=== PATIENT | male | born 1995 ===

== ENCOUNTER 2023-07-09 17:42 | Emergency (ER) | payer OTHER, SELFPAY | END 2023-07-09 20:20 | disposition left against medical advice (07) | LOC: ANHED 19:56 | DX: Z53.21 Procedure and treatment not carried out due to patient leaving prior to being seen by health care provider (principal) | CPT/HCPCS: 99199 ==

== ENCOUNTER 2024-07-30 00:13 | Emergency (ER) | payer OTHER, SELFPAY ==
--- NOTE | 2024-07-30 01:25 | PC.NURSE ---
ON 07/30/2024 AT 0125 PT WAS CALLED FOR TRIAGE. NO ANSWER FROM ED WR WHEN THIS PT'S NAME WAS CALLED 3 TIMES.
--- NOTE | 2024-07-30 01:25 | PC.NURSE ---
AT 0125 ON 07/30/2024 NO ANSWER FOR TRIAGE WHEN PT'S NAME WAS CALLED MULTIPLE TIMES IN ED WR.
--- OUTSIDE RECORDS SUMMARY | 2024-08-06 00:31 | XMS_ITS | Clinical Summary ---
Author Organization [facility] Address [facility]. [place], [place] [address] [place] [address] Care Team Providers Care Garage Door Technician Name Role Phone EfrainYasmine Primary Care Provider [phone] Allergies No known active allergies Medications HYDROcodone-venkat taminophen (NORCO) 5-325 MG tabletIndicatio ns:Acute Pain < 7 Day Supply Take 1-2 tablets by mouth every 6 (six) hours as needed for Pain. Indications: Acute Pain < 7 Day Supply 30 tablet 07/10/2023 Active Active Problems Problem Noted Date Diagnosed Date Closed fracture of multiple ribs of right side, initial encounter 07/10/2023 Insomnia, unspecified type 09/20/2020 Weight loss 09/20/2020 Mood swings 09/20/2020 Anxiety 02/23/2020 Hand injury 11/24/2016 Heart murmur 01/05/2016 Idiopathic urticaria 01/02/2016 Resolved Problems Problem Noted Date Diagnosed Date Resolved Date Need for prophylactic vaccin ation with combined bdohimhuhs-wwhacmu-yhkbpzpxz (DTP) vaccine 09/20/2020 09/24/2020 Encounter for preventive health examination 01/02/2016 04/13/2020 Immunizations Name Administration Dates Next Due Dtap (Generic) 11/20/2000, 7,03/25/1996, 996,1995 Dtp/Hib 04/10/1997, 6,1995, 996,1995,1995 Hepatitis B (Generic: Adult) 06/20/1996,09/28/18 96,1995 Hib Vaccine, Prp-Omp 04/10/1997,03/25/19 96,1995, 996 MMR 08/24/1996 MMR (Generic) 11/20/2000 Opv 11/20/2000, 6,1995, 996 Tdap (Generic) 03/01/2010 Tdap (Historical Only-select from magnify glass) 09/20/2020 Varicella Vaccine 03/01/2010,08/24/1996 Family History Medical History Relation Comments Colon Cancer Other Diabetes Other Hypertension Other Relation Status Comments Other Social History Tobacco Use Types Packs/Day Years Used Date Smoking Tobacco: Every Day Comments:few a day Alcohol Use Standard Drinks/Week Comments Never 0 (1 standard drink = 0.6 oz pur e alcohol) AUDIT-C Answer Date Recorded Frequency of Alcohol Consumption Never 02/23/2020 Average Number of Drinks Not on file 020 Frequency of Binge Drinking Not on file 02/01 PHQ-2 Answer Date Recorded PHQ-2 Score - If the patient scores above 3, please move on to questions 3-9 0 02/23/2020 Sex and Gender Information Value Date Recorded Sex Assigned at Not on file Legal Sex Male 6:32 PM CDT Gender Identity Not on file Sexual Orientation Not on file Occupation Industry Job Start Date Job End Date works [employer] Not on file Not on file Not o n file Last Filed Vital Signs Vital Sign Reading Time Taken Comments Blood Pressure 154/88 07/10/2023 2:36 PM QUALITY ASSURANCE CALIBRATOR Pulse - - Temperature - - Respiratory Rate - - Oxygen Saturation 97% 07/10/2023 2:36 PM QUALITY ASSURANCE CALIBRATOR Inhaled Oxygen Concentration - - Weight 81.2 kg (179 lb) 07/10/2023 2:36 PM QUALITY ASSURANCE CALIBRATOR Height 180.3 cm (5' 11 ) 03/29/2020 2:34 PM CDT Body Mass Index 24.97 03/29/2020 2:34 PM CDT Plan of Treatment Health Maintenance Due Date Last Done Comments Pneumococcal Vaccine: Pediatrics (0 to 5 Years) and At-Risk Patients (6 to 64 Years) (1 of 2 - PCV) 2001 Hepatitis C 2013 Annual Physical 02/22/2021 02/23/2020 COVID-19 Vaccine (2023-25 season) 2024 Influenza Adult (#1) 2024 DTaP, Tdap and Td Vaccines (8 - Td or Tdap) 09/20/2030 09/20/2020, 03/01/2010, 11/20/2000, Additional history exists Hepatitis B Vaccines Completed 06/20/1996, 1995, 1995 HPV Vaccines Aged Out No longer eligi ble based on patient's age to complete this topic Meningococcal Vaccine Aged Out No nikky jermaine eligible based on patient's age to complete this topic RSV Immunizations Under 20 Months Aged Out No longer eligible based on patient's age to complete this topic Insurance [facility] Care Teams Garage Door Technician Relationship Specialty Start Date End Date Yasmine Zuniga DO [address] [place] [address] PCP - General FAMILY PRACTICE 10/04/19
--- OUTSIDE RECORDS SUMMARY | 2024-08-06 00:31 | XMS_ITS | Encounter Summary ---
Author Organization [facility] Address [address] [place] [address]. [place], [place] [address] [place] [address] Care Team Providers Care Vp Director Of Finance Name Role Phone Unavailable Primary Care Provider Unavailabl e Encounter Details Date Type Department Care Team (Latest Contact Info) Description 09/28/2018 [facility] Yasmine Zuniga, DO [address] [place] [address] Social History Tobacco Use Types Packs/Day Years Used Date Smoking Tobacco: Never Assessed Sex and Gender Information Value Date Recorded Sex Assigned at Not on file Legal Sex Male 6:32 PM CDT Gender Identity Not on file Sexual Orientation Not on file documented as of this encounter Plan of Treatment Not on file documented as of this encounter Visit Diagnoses Not on filedocumented in this encounter
--- OUTSIDE RECORDS SUMMARY | 2024-08-06 00:31 | XMS_ITS | Encounter Summary ---
Author Organization [facility] Address [address] [place] [address]. [place], [place] [address] [place] [address] Care Team Providers Care Stone Operator Name Role Phone Yasmine Zuniga DO Primary Care Provider Encounter Details Date Type Department Care Team (Latest Contact Info) Description 02/23/2020 Travel Social History Tobacco Use Types Packs/Day Years [...] Job Start Date Job End Date works [employer] Not on file Not on file Not o n file COVID-19 Exposure Response Date Recorded In the last month, have you been in contact with someone who was confirmed or suspected to have Coronavirus / COVID-19? No / Unsure 02/23/2020 4:08 PM CDT documented as of this encounter Plan of Treatment Not on file documented as of this encounter Visit Diagnoses Not on filedocumented in this encounter Care Teams Stone Operator Relationship Specialty Start Date End Date Yasmine Zuniga DO [address] [place] [address] PCP - General FAMILY PRACTICE 10/04/19 documented as of this encounter
--- OUTSIDE RECORDS SUMMARY | 2024-08-06 00:31 | XMS_ITS | Encounter Summary ---
Author Organization [facility] Address [facility] [address] [place] [address] Care Team Providers Care Lithograph Press Operator Name Role Phone Unavailable Primary Care Provider Unavailabl e Encounter Details Date Type Department Care Team (Latest Contact Info) Description 10/20/2018 Abstract [facility] Efrain Yasmine S, DO [address] [place], [place] [id number] Social History Tobacco Use Types Packs/Day Years Used Date Smoking Tobacco: Never Assessed Sex and Gender Information Value Date Recorded Sex Assigned at Not on file Legal Sex Male 6:32 PM CDT Gender Identity Not on file Sexual Orientation Not on file documented as of this encounter Miscellaneous Notes * Letter - Angelo Apodaca Md, MD - 10/20/2018 4:21 PM CDT Message Appointment Status: The patient no showed for his/her appointment... Patient Communication: The patient was called regarding the missed appointment.. today. Result: The patient will call back to reschedule the appointment. Signatures Electronically signed by : Jessica Bell, ; Oct 20 2018 4:21PM LINSEED OIL ORDER FILLER (Author) documented in this encounter Plan of Treatment Not on file documented as of this encounter Visit Diagnoses Not on filedocumented in this encounter
--- OUTSIDE RECORDS SUMMARY | 2024-08-06 00:31 | XMS_ITS | Encounter Summary ---
Author Organization [facility] Address [address] [place] [address]. [place], [place] [address] [place] [address] Care Team Providers Care Senior Web Developer Name Role Phone EfrainYasmine Primary Care Provider [phone] Encounter Details Date Type Department Care Team ([facility] st Contact Info) Description 09/20/2020 9:35 AM THINNER SPRAYER Laboratory Only [facility] [address] [facility] [address] [place] [address] Social History Tobacco Use Types Packs/Day Years [...] Job Start Date Job End Date works [employer] Not on file Not on file Not o n file COVID-19 Exposure Response Date Recorded In the last month, have you been in contact with someone who was confirmed or suspected to have Coronavirus / COVID-19? No / Unsure 09/20/2020 9:03 AM THINNER SPRAYER documented as of this encounter Plan of Treatment Not on file documented as of this encounter Procedures Procedure Name Priority Date/Time Associated Diagnosis Comments COMPREHENSIVE METABOLIC PANEL Routine 09/20/2020 9:44 AM THINNER SPRAYER Weight loss Anxiety THYROXINE, FREE (FT4) Routine 09/20/2020 9:44 AM THINNER SPRAYER Weight loss Anxiety THYROID STIM HORMONE TSH Routine 09/20/2020 9:44 AM THINNER SPRAYER Weight loss Anxiety COLLECTION VENOUS BLOOD VENIPUNCTURE Routine 09/20/2020 9:41 AM THINNER SPRAYER Weight loss Anxiety documented in this encounter Results * THYROID STIM HORMONE, TSH (09/20/2020 9:44 AM THINNER SPRAYER) TSH 0.58 0.40 - 4.50 mIU/L [facility] 09/20/2020 9:44 AM THINNER SPRAYER 09/21/2020 7:19 AM THINNER SPRAYER Narrative [facility] - 09/21/2020 2:12 PM THINNER SPRAYER FASTING: YES Yasmine Zuniga DO LABORATORY Final Result Performing Organization Address [facility] Co de Phone Number [facility] [address] [place] [address] * THYROXINE, FREE (FT4) (09/20/2020 9:44 AM THINNER SPRAYER) FREE T4 1.2 0.8 - 1.8 ng/dL [facility] 09/20/2020 9:44 AM THINNER SPRAYER 09/21/2020 7:19 AM THINNER SPRAYER Narrative [facility] - 09/21/2020 2:12 PM THINNER SPRAYER FASTING: YES us Yasmine Zuniga DO LABORATORY Final Result Performing Organization Address [facility] Co de Phone Number [facility] [address] [place] [address] * (ABNORMAL) COMPREHENSIVE METABOLIC PANEL (09/20/2020 9:44 AM THINNER SPRAYER) GLUCOSE 76 65 - 99 mg/dL [facility] Comment: ? Fasting reference interval BUN 12 7 - 25 mg/dL [facility] CREATININE S/P/B 0.97 0.60 - 1.35 mg/dL [facility] EGFR NON-AFR. AMER. 108 > OR = 60 mL/min/1. 73m2 [facility] EGFR AFR. AMER. 125 > OR = 60 mL/min/1. 73m2 [facility] BUN CREATININE RATIO NOT APPLICABLE 6 - 22 (calc) [facility] SODIUM S/P/B 139 135 - 146 mmol/L [facility] POTASSIUM S/P/B 3.7 3.5 - 5.3 mmol/L [facility] CHLORIDE S/P/B 99 98 - 110 mmol/L [facility] CO2 25 20 - 32 mmol/L [facility] CALCIUM S/P/B 9.8 8.6 - 10.3 mg/dL [facility] TOTAL PROTEIN S/P/B 7.2 6.1 - 8.1 g/dL [facility] ALBUMIN S/P/B 5.0 3.6 - 5.1 g/dL [facility] GLOBULIN 2.2 1.9 - 3.7 g/dL (calc) [facility] ALBUMIN/GLOBULI N RATIO 2.3 1.0 - 2.5 (calc) [facility] BILIRUBIN TOTAL S/P/B 1.8(H) 0.2 - 1.2 mg/dL [facility] ALKALINE PHOSPHATASE S/P/B 103 36 - 130 U/L [facility] AST 41(H) 10 - 40 U/L [facility] ALT 22 9 - 46 U/L [facility] 09/20/2020 9:44 AM THINNER SPRAYER 09/21/2020 7:19 AM THINNER SPRAYER Narrative [facility] - 09/21/2020 2:12 PM THINNER SPRAYER FASTING: YES us Yasmine Zuniga DO LABORATORY Final Result [facility] [address] [address] [address] documented in this encounter Visit Diagnoses Diagnosis Weight loss Loss of weight Anxiety Anxiety state, unspecified documented in this encounter Care Teams Senior Web Developer Relationship Specialty Start Date End Date Yasmine Zuniga DO [address] [place] [address] PCP - General FAMILY PRACTICE 10/04/19 documented as of this encounter
--- OUTSIDE RECORDS SUMMARY | 2024-08-06 00:31 | XMS_ITS | Encounter Summary ---
Author Organization [facility] Address [address] [place] [address]. [id number] [place] [address] Care Team Providers Care Collar Turner Name Role Phone Yasmine Zuniga DO Primary Care Provider Encounter Details Date Type Department Care Team (Latest Contact Info) Description 03/29/2020 Travel Social History Tobacco Use Types Packs/Day [...] Job Start Date Job End Date works [employer] Not on file Not on file Not o n file COVID-19 Exposure Response Date Recorded In the last month, have you been in contact with someone who was confirmed or suspected to have Coronavirus / COVID-19? No / Unsure 03/29/2020 2:29 PM CDT documented as of this encounter Plan of Treatment Not on file documented as of this encounter Visit Diagnoses Not on filedocumented in this encounter Care Teams Collar Turner Relationship Specialty Start Date End Date Yasmine Zuniga DO [address] [place] [address] PCP - General FAMILY PRACTICE 10/04/19 documented as of this encounter
--- OUTSIDE RECORDS SUMMARY | 2024-08-06 00:31 | XMS_ITS | Encounter Summary ---
Author Organization [facility] Address [address] [place] [address]. [place], [place] [address] [place] [address] Care Team Providers Care Cook'S Assistant Name Role Phone Unavailable Primary Care Provider Unavailabl e Encounter Details Date Type Department Care Team (Late st Contact Info) Description 04/24/2008 Abstract [facility] [employer] [facility] [address] [place] [address] , Angelo Apodaca MD Social History Tobacco Use Types Packs/Day Years [...]
--- OUTSIDE RECORDS SUMMARY | 2024-08-06 00:31 | XMS_ITS | Encounter Summary ---
Author Organization [facility] Address [address] [place] [address]. [place] [address] [place] [address] Care Team Providers Care Certified Medical Biller Name Role Phone Ant Zuniga DO Primary Care Provider Reason for Visit * Reason Comments Physical EPPE Encounter Details Date Type Department Care Team (Late st Contact Info) Description 02/23/2020 4:00 PM CDT Office Visit [facility] [address] [facility] [address] [place] [id number] Ant Zuniga DO [address] [place] [address] Physical (EPPE) Social History Tobacco Use Types Packs/Day Years [...] Job Start Date Job End Date works [employer] Not on file Not on file Not o n file COVID-19 Exposure Response Date Recorded In the last month, have you been in contact with someone who was confirmed or suspected to have Coronavirus / COVID-19? No / Unsure 02/23/2020 4:08 PM CDT documented as of this encounter Last Filed Vital Signs Vital Sign Reading Time Taken Comments Blood Pressure 144/68 02/23/2020 4:12 PM CDT Pulse - - Temperature - - Respiratory Rate - - Oxygen Saturation - - Inhaled Oxygen Concentration - - Weight 83 kg (183 lb) 02/23/2020 4:12 PM CDT Height 180.3 cm (5' 11 ) 02/23/2020 4:12 PM CDT Body Mass Index 25.52 02/23/2020 4:12 PM CDT documented in this encounter Progress Notes * Ant Ashia Efrain, DO - 02/23/2020 4:00 PM CDT Reason for Visit: Physical (EPPE) History of Present Illness: Here for EstPPE Saw Libia in October for anxiety, was started on zoloft, helps some but says when he gets very stressed, he gets worse Sleeps ok Girlfriend having their 2nd son tomorrow Not working due to covid So many stressors He does smoke marijuana several times a week, says it calms him down ROS: Review of Systems Constitutional: Negative. Respiratory: Negative. Cardiovascular: Negative. Gastrointestinal: Negative. Genitourinary: Negative. Musculoskeletal: Negative. Psychiatric/Behavioral: Negative for depression. The patient is nervous/anxious. Medications: Current Outpatient Medications: ??? busPIRone 15 MG tablet, Take 1 tablet (15 mg total) by mouth 2 (two) times daily., Disp: 60 tablet, Rfl: 1 ??? sertraline 50 MG tablet, Take 1 tablet (50 mg total) by mouth daily., Disp: 30 tablet, Rfl: 0 No Known Allergies History reviewed. No pertinent past medical history. History reviewed. No pertinent surgical history. Social History Tobacco Use ??? Smoking status: Current Every Day Smoker ??? Tobacco comment: few a day Substance Use Topics ??? Alcohol use: Never Frequency: Never Social History Socioeconomic History ??? Marital status: Domestic Partner Spouse name: Not on file ??? Number of children: 2 ??? Years of education: Not on file ??? Highest education level: Not on file Occupational History ??? Occupation: [employer] Social History Narrative Has 2 sons with longtime girlfriend Physical Exam Constitutional: He is oriented to person, place, and time. He appears well- developed and well-nourished. HENT: Head: Normocephalic. Right Ear: External ear normal. Left Ear: External ear normal. Nose: Nose normal. Mouth/Throat: Oropharynx is clear and moist. Eyes: Conjunctivae are normal. Pupils are equal, round, and reactive to light. Neck: Normal range of motion. Neck supple. Cardiovascular: Normal rate, regular rhythm and normal heart sounds. Pulmonary/Chest: Effort normal and breath sounds normal. Abdominal: Soft. Bowel sounds are normal. Musculoskeletal: Normal range of motion. Neurological: He is alert and oriented to person, place, and time. Psychiatric: Thought content normal. Very anxious and sweating Nursing note and vitals reviewed. Filed Vitals: 02/23/20 1612 BP: (!) 144/68 Weight: 83 kg (183 lb) Height: 5' 11 (1.803 m) Diagnoses/Impression: 1. Anxiety busPIRone 15 MG tablet 2. Encounter for preventive health examination Recommendations and Plan: Remain active, exercise, healthy diet, eye exam when due, try to cut out caffeine rec he not smoke Add buspar F/u 1 mth Reviewed and updated this visit by provider: Allergies Meds Problems Med Hx Surg Hx Fam Hx Orders Placed This Encounter ??? busPIRone 15 MG tablet ANT ZUNIGA DO Referring Provider: No ref. provider found PCP: ANT ZUNIGA DO documented in this encounter Plan of Treatment Not on file documented as of this encounter Visit Diagnoses Diagnosis Anxiety- Primary Anxiety state, unspecified Encounter for preventive health examination Routine general medical examination at a health care facility documented in this encounter Care Teams Certified Medical Biller Relationship Specialty Start Date End Date Ant Zuniga DO [address] [place] [address] PCP - General FAMILY PRACTICE 10/04/19 documented as of this encounter
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
--- OUTSIDE RECORDS SUMMARY | 2024-08-06 00:31 | XMS_ITS | Encounter Summary ---
Author Organization [facility] Address [address] [place] [address]. [place], [place] [address] [place] [address] Care Team Providers Care Early Childhood Special Educator Name Role Phone Yasmine Zuniga DO Primary Care Provider [phone] Encounter Details Date Type Department Care Team (Latest Contact Info) Description 09/20/2020 Travel Social History Tobacco Use Types Packs/Day [...] Job Start Date Job End Date works [employer] Not on file Not on file Not o n file COVID-19 Exposure Response Date Recorded In the last month, have you been in contact with someone who was confirmed or suspected to have Coronavirus / COVID-19? No / Unsure 09/20/2020 9:03 AM [employer] LABORATORY DIRECTOR documented as of this encounter Plan of Treatment Not on file documented as of this encounter Visit Diagnoses Not on filedocumented in this encounter Care Teams Early Childhood Special Educator Relationship Specialty Start Date End Date Yasmine Zuniga DO [address] [place] [address] PCP - General FAMILY PRACTICE 10/04/19 documented as of this encounter
--- OUTSIDE RECORDS SUMMARY | 2024-08-06 00:31 | XMS_ITS | Encounter Summary ---
Author Organization [facility] Address [facility]. [place], [place] [address] [place] [address] Care Team Providers Care Wood Milling Machine Tender Name Role Phone Unavailable Primary Care Provider Unavailabl e Encounter Details Date Type Department Care Team (Late st Contact Info) Description 03/16/2003 Abstract [facility] EKG [address] [place] [address] Yasmine Zuniga S, DO [address] [place] [address] Social History Tobacco Use Types Packs/Day Years [...]
--- OUTSIDE RECORDS SUMMARY | 2024-08-06 00:31 | XMS_ITS | Encounter Summary ---
Author Organization [facility] Address [address] [place] [address]. [place], [place] [address] [place] [address] Care Team Providers Care Java Swing Developer Name Role Phone Ant Zuniga DO Primary Care Provider [phone] Reason for Referral * Psychiatric (Routine) - Closed Specialty Diagnoses / Procedures Referred By Olvin t Referred To Contact Psychiatry Diagnoses Insomnia, unspecified type Anxiety Ant Zuniga DO [address] [place] [address] Phone: tel: fax: Referral ID Status Reason Start Date Expiration Date V isits Requested Visits Authorized [id number] Closed Specialty Services 09/20/2020 10/21/2021 1 1 AISAL COORDINATOR Reason for Visit * Reason Comments Acute Note discuss anxiety/depr ession Encounter Details Date Type Department Care Team (Late st Contact Info) Description 09/20/2020 9:15 AM APPRAISAL COORDINATOR Office Visit [facility] [address] [place] [id number] Ant Zuniga DO [address] [place] [address] Acute Note (discuss anxiety/depression) Social History Tobacco Use Types Packs/Day Years [...] Job Start Date Job End Date works [employer] Not on file Not on file Not o n file COVID-19 Exposure Response Date Recorded In the last month, have you been in contact with someone who was confirmed or suspected to have Coronavirus / COVID-19? No / Unsure 09/20/2020 9:03 AM APPRAISAL COORDINATOR documented as of this encounter Last Filed Vital Signs Vital Sign Reading Time Taken Comments Blood Pressure 132/70 09/20/2020 9:04 AM APPRAISAL COORDINATOR Pulse - - Temperature - - Respiratory Rate - - Oxygen Saturation - - Inhaled Oxygen Concentration - - Weight 80.3 kg (177 lb) 09/20/2020 9:04 AM APPRAISAL COORDINATOR Height - - Body Mass Index 24.69 03/29/2020 2:34 PM CDT documented in this encounter Progress Notes * Ant Zuniga, DO - 09/20/2020 9:15 AM CST Reason for Visit: Acute Note (discuss anxiety/depression) History of Present Illness: Here with worsening anxiety and mood swings, he goes on and off meds and now knows did worse off zoloft, does not feel buspar helps He lives with parents but has girlfriend and 2 small children, this is a stressor His father is here with him today and said he has been cutting himself when he gets upset Can't sleep, says he has gone 30hrs without sleeping and then his anxiety is worse Stopping smoking cigarettes but is vaping, still marijuana use but not daily, occas etoh Says feels better if goes out and walks, not working Says he is miserable and makes everyone around him upset Says not suicidal Wants to see psych ROS: Review of Systems Constitutional: As per HPI Medications: Current Outpatient Medications: ??? busPIRone 15 MG tablet, Take 1 tablet (15 mg total) by mouth 3 (three) times daily. (Patient taking differently: Take 15 mg by mouth 2 (two) times a day. ), Disp: 90 tablet, Rfl: 5 ??? SERTRALINE 50 MG tablet, TAKE 1 TABLET(50 MG) BY MOUTH DAILY, Disp: 30 tablet, Rfl: 3 ??? traZODone 50 MG tablet, Take 1 tablet (50 mg total) by mouth nightly at bedtime for 30 days., Disp: 30 tablet, Rfl: 1 No Known Allergies History reviewed. No pertinent past medical history. History reviewed. No pertinent surgical history. Social History Socioeconomic History ??? Marital status: Domestic Partner Spouse name: Not on file ??? Number of children: 2 ??? Years of education: Not on file ??? Highest education level: Not on file Occupational History ??? Occupation: [employer] Social Needs ??? Financial resource strain: Not on file ??? Food insecurity Worry: Not on file Inability: Not on file ??? Transportation needs Medical: Not on file Non-medical: Not on file Tobacco Use ??? Smoking status: Current Every Day Smoker ??? Tobacco comment: few a day Substance and Sexual Activity ??? Alcohol use: Never Frequency: Never ??? Drug use: Yes Types: Marijuana Comment: qod ??? Sexual activity: Not on file Lifestyle ??? Physical activity Days per week: Not on file Minutes per session: Not on file ??? Stress: Not on file Relationships ??? Social connections Talks on phone: Not on file Gets together: Not on file Attends mosque service: Not on file Active member of club or organization: Not on file Attends meetings of clubs or organizations: Not on file Relationship status: Not on file ??? Intimate partner violence Fear of current or ex partner: Not on file Emotionally abused: Not on file Physically abused: Not on file Forced sexual activity: Not on file Other Topics Concern ??? Not on file Social History Narrative Has 2 sons with longtime girlfriend Family History Problem Relation Name Age of Onset ??? Colon Cancer Other ??? Diabetes Other ??? Hypertension Other Family Status Relation Name Status ??? Other (Not Specified) Physical Exam Vitals signs and nursing note reviewed. Constitutional: Comments: Wt loss noted Psychiatric: Comments: Pt cannot stop moving, leg shaking Does answer appropriately Talks a lot Not angry, affect not flat Interaction with father good Filed Vitals: 09/20/20 0904 BP: 132/70 Weight: 80.3 kg (177 lb) Diagnoses/Impression: 1. Insomnia, unspecified type traZODone 50 MG tablet Ambulatory Referral to Psychiatry 2. Need for prophylactic vaccination with combined hohqzryctp-jpzxsbs-vqqjgmbbq (DTP) vaccine [64108] Tdap, Tetanus, diphtheria toxoids and acellular pertussis vaccine, >7yrs, IM Use 3. Weight loss THYROID STIM HORMONE, TSH THYROXINE, FREE (FT4) COMPREHENSIVE METABOLIC PANEL 4. Anxiety THYROID STIM HORMONE, TSH THYROXINE, FREE (FT4) COMPREHENSIVE METABOLIC PANEL Ambulatory Referral to Psychiatry 5. Mood swings Recommendations and Plan: Check labs including thyroid Will see who is in plan and ok referral He said if he could just sleep it would help, added trazadone at hs Orders Placed This Encounter ??? THYROID STIM HORMONE, TSH ??? THYROXINE, FREE (FT4) ??? COMPREHENSIVE METABOLIC PANEL ??? Ambulatory Referral to Psychiatry ? ? [13968] Tdap, Tetanus, diphtheria toxoids and acellular pertussis vaccine, >7yrs, IM Use ??? traZODone 50 MG tablet ANT ZUNIGA DO Referring Provider: No ref. provider found PCP: ANT ZUNIGA DO AISAL COORDINATOR documented in this encounter Plan of Treatment Scheduled Referrals Name Type Priority Associated Diagnoses Orde r Schedule Ambulatory Referral to Psychiatry Referral Routine Insomnia, unspecified type Anxiety Ordered: 09/20/2020 documented as of this encounter Results * (ABNORMAL) COMPREHENSIVE METABOLIC PANEL (09/20/2020 9:44 AM APPRAISAL COORDINATOR) [facility] GLUCOSE 76 65 - 99 mg/dL [facility] Comment: ? Fasting reference interval BUN 12 7 - 25 mg/dL [facility] CREATININE S/P/B 0.97 0.60 - 1.35 mg/dL [facility] EGFR NON-AFR. AMER. 108 > OR = 60 mL/min/1. 73m2 [facility] EGFR AFR. AMER. 125 > OR = 60 mL/min/1. 73m2 [facility] BUN CREATININE RATIO NOT APPLICABLE 6 - 22 (calc) [facility] SODIUM S/P/B 139 135 - 146 mmol/L [facility] POTASSIUM S/P/B 3.7 3.5 - 5.3 mmol/L [facility] CHLORIDE S/P/B 99 98 - 110 mmol/L [facility] CO2 25 20 - 32 mmol/L [facility] CALCIUM S/P/B 9.8 8.6 - 10.3 mg/dL [facility] TOTAL PROTEIN S/P/B 7.2 6.1 - 8.1 g/dL [facility] ALBUMIN S/P/B 5.0 3.6 - 5.1 g/dL [facility] GLOBULIN 2.2 1.9 - 3.7 g/dL (calc) [facility] ALBUMIN/GLOBULI N RATIO 2.3 1.0 - 2.5 (calc) [facility] BILIRUBIN TOTAL S/P/B 1.8(H) 0.2 - 1.2 mg/dL [facility] ALKALINE PHOSPHATASE S/P/B 103 36 - 130 U/L [facility] AST 41(H) 10 - 40 U/L [facility] ALT 22 9 - 46 U/L [facility] 09/20/2020 9:44 AM APPRAISAL COORDINATOR 09/21/2020 7:19 AM APPRAISAL COORDINATOR Narrative [facility] - 09/21/2020 2:12 PM APPRAISAL COORDINATOR FASTING: YES us Ant Zuniga DO LABORATORY Final Result [facility] [address] [address] * THYROXINE, FREE (FT4) (09/20/2020 9:44 AM APPRAISAL COORDINATOR) FREE T4 1.2 0.8 - 1.8 ng/dL [facility] 09/20/2020 9:44 AM APPRAISAL COORDINATOR 09/21/2020 7:19 AM APPRAISAL COORDINATOR Narrative [facility] - 09/21/2020 2:12 PM APPRAISAL COORDINATOR FASTING: YES Ant Zuniga DO LABORATORY Final Result Performing Organization Address [facility] Co de Phone Number [facility] [address] [place] [address] * THYROID STIM HORMONE, TSH (09/20/2020 9:44 AM APPRAISAL COORDINATOR) TSH 0.58 0.40 - 4.50 mIU/L [facility] 09/20/2020 9:44 AM APPRAISAL COORDINATOR 09/21/2020 7:19 AM APPRAISAL COORDINATOR Narrative [facility] - 09/21/2020 2:12 PM APPRAISAL COORDINATOR FASTING: YES Ant Zuniga DO LABORATORY Final Result Performing Organization Address [facility] de Phone Number [facility] [address] [place] [address] documented in this encounter Visit Diagnoses Diagnosis Insomnia, unspecified type- Primary Need for prophylactic vaccination with combined lhzzjlhtyu-owuttqq-hjloturdf (DTP) vaccine Weight loss Loss of weight Anxiety Anxiety state, unspecified Mood swings Other specified episodic mood disorder Weight loss Loss of weight Anxiety Anxiety state, unspecified documented in this encounter Care Teams Java Swing Developer Relationship Specialty Start Date End Date Ant Zuniga DO [facility] [address] [place] [address] PCP - General FAMILY PRACTICE 10/04/19 documented as of this encounter
--- OUTSIDE RECORDS SUMMARY | 2024-08-06 00:31 | XMS_ITS | Encounter Summary ---
Author Organization [facility] Address [address] [place] [address]. [place] [address] [place] [address] Care Team Providers Care Steam Shovel Engineer Name Role Phone Unavailable Primary Care Provider Unavailabl e Encounter Details Date Type Department Care Team (Latest Contact Info) Description 09/27/[address] [facility] Yasmine Zuniga, DO [address] [place] [address] Social History Tobacco Use Types Packs/Day Years [...]
--- OUTSIDE RECORDS SUMMARY | 2024-08-06 00:31 | XMS_ITS | Encounter Summary ---
Author Organization [facility] Address [address] [place] [address]. [place], [place] [address] [place] [address] Care Team Providers Care Cms Expert Name Role Phone Ant Zuniga DO Primary Care Provider Reason for Visit * Reason Comments Follow Up [facility] Encounter Details Date Type Department Care Team (Late st Contact Info) Description 07/10/2023 2:45 PM PROJECT EXECUTIVE Office Visit [facility] [address] [facility] [address] [place] [phone] Ant Zuniga DO [address] [place] [address] Follow Up ([facility]) Social History Tobacco Use Types Packs/Day Years [...] Job Start Date Job End Date works [employer] Not on file Not on file Not o n file documented as of this encounter Last Filed Vital Signs Vital Sign Reading Time Taken Comments Blood Pressure 154/88 07/10/2023 2:36 PM PROJECT EXECUTIVE Pulse - - Temperature - - Respiratory Rate - - Oxygen Saturation 97% 07/10/2023 2:36 PM PROJECT EXECUTIVE Inhaled Oxygen Concentration - - Weight 81.2 kg (179 lb) 07/10/2023 2:36 PM PROJECT EXECUTIVE Height - - Body Mass Index 24.97 03/29/2020 2:34 PM CDT documented in this encounter Progress Notes * Ant Zuniga, DO - 07/10/2023 2:45 PM CST Reason for Visit: Follow Up ([facility]) History of Present Illness: Here for ER f/u Pt fell of a ladder yesterday afternoon and fell into a corner of a dumpster on his right side Went to ER and has multiple rib fractures on the right 01-12 Not work related Had CT, no bleeding or pneumothorax He left the ER AMA because he needed to get home to take care of his small children and he had no one that could help Hurts mostly when first gets up but after he is up and walking around for a while, it is better Not sob No cough Does smoke Has just taken tylenol ROS: Review of Systems Constitutional: As per HPI Medications: Current Outpatient Medications: HYDROcodone-acetaminophen (NORCO) 5-325 MG tablet, Take 1-2 tablets by mouth every 6 (six) hours asneeded for Pain. Indications: Acute Pain < 7 Day Supply, Disp: 30 tablet, Rfl: 0 No Known Allergies History reviewed. No pertinent past medical history. History reviewed. No pertinent surgical history. Social History Socioeconomic History Marital status: Domestic Partner Number of children: 2 Occupational History Occupation: works [employer] Tobacco Use Smoking status: Every Day Tobacco comments: few a day Substance and Sexual Activity Alcohol use: Never Drug use: Yes Types: Marijuana Comment: qod Social History Narrative Has 2 sons with longtime girlfriend Family History Problem Relation Name Age of Onset Colon Cancer Other Diabetes Other Hypertension Other Family Status Relation Name Status Other (Not Specified) Physical Exam Vitals and nursing note reviewed. Constitutional: General: He is not in acute distress. Cardiovascular: Rate and Rhythm: Normal rate and regular rhythm. Pulmonary: Effort: Pulmonary effort is normal. Breath sounds: Normal breath sounds. Chest: Chest wall: Tenderness present. Musculoskeletal: Comments: Walks slowly and slightly leans to right and forward No bony abnormality palpated Does have some bruising over right lateral side tender Psychiatric: Mood and Affect: Mood normal. Filed Vitals: 07/10/23 1436 BP: (!) 154/88 SpO2: 97% Weight: 81.2 kg (179 lb) Diagnoses/Impression: 1. Closed fracture of multiple ribs of right side, initial encounter HYDROcodone-acetaminophen (NORCO) 5-325 MG tablet Recommendations and Plan: [place] Aleve prn No strenuous activity Off work for at least a week If starts with cough, fever, sob get eval immediately Declines flu shot Don't smoke Orders Placed This Encounter HYDROcodone-acetaminophen (NORCO) 5-325 MG tablet No LOS data to display ATN ZUNIGA DO Referring Provider: No ref. provider found PCP: ANT ZUNIGA DO ECT EXECUTIVE documented in this encounter Plan of Treatment Not on file documented as of this encounter Visit Diagnoses Diagnosis Closed fracture of multiple ribs of right side, initial encounter- Primary documented in this encounter Care Teams Cms Expert Relationship Specialty Start Date End Date Ant Zuniga DO [address] [place] [address] PCP - General FAMILY PRACTICE 10/04/19 documented as of this encounter
--- OUTSIDE RECORDS SUMMARY | 2024-08-06 00:31 | XMS_ITS | Encounter Summary ---
Author Organization [facility] Address [address] [place] [address]. [place] [address] [place] [address] Care Team Providers Care Insurance Coder Name Role Phone Ant Zuniga DO Primary Care Provider Reason for Visit * Reason Comments Anxiety follow up Encounter Details Date Type Department Care Team (Late st Contact Info) Description 03/29/2020 2:45 PM CDT Office Visit [facility] [address] [facility] [address] [place] [phone] Ant Zuniga DO [address] [place] [address] Anxiety (follow up) Social History Tobacco Use Types Packs/Day Years [...] Job Start Date Job End Date works [employer] Not on file Not on file Not o n file COVID-19 Exposure Response Date Recorded In the last month, have you been in contact with someone who was confirmed or suspected to have Coronavirus / COVID-19? No / Unsure 03/29/2020 2:29 PM CDT documented as of this encounter Last Filed Vital Signs Vital Sign Reading Time Taken Comments Blood Pressure 124/76 03/29/2020 2:34 PM CDT Pulse - - Temperature - - Respiratory Rate - - Oxygen Saturation - - Inhaled Oxygen Concentration - - Weight 85.3 kg (188 lb) 03/29/2020 2:34 PM CDT Height 180.3 cm (5' 11 ) 03/29/2020 2:34 PM CDT Body Mass Index 26.22 03/29/2020 2:34 PM CDT documented in this encounter Progress Notes * Ant Ang Efrain, DO - 03/29/2020 2:45 PM CDT Reason for Visit: Anxiety (follow up) History of Present Illness: Here for f/u on anxiety Says he's doing better but mid day he feels it has worn off Has new baby at home and 2yr old, says all are doing well, he is sleeping, still uses daily marijuana Overall, happy with how he feels except mid day ROS: Review of Systems Constitutional: As per HPI Medications: Current Outpatient Medications: ??? busPIRone 15 MG tablet, Take 1 tablet (15 mg total) by mouth 3 (three) times daily., Disp: 90 tablet, Rfl: 5 ??? SERTRALINE 50 MG tablet, TAKE 1 TABLET(50 MG) BY MOUTH DAILY, Disp: 30 tablet, Rfl: 0 No Known Allergies History reviewed. No pertinent past medical history. History reviewed. No pertinent surgical history. Social History Socioeconomic History ??? Marital status: Domestic Partner Spouse name: Not on file ??? Number of children: 2 ??? Years of education: Not on file ??? Highest education level: Not on file Occupational History ??? Occupation: works [employer] Social Needs ??? Financial resource strain: Not on file ??? Food insecurity: Worry: Not on file Inability: Not on file ??? Transportation needs: Medical: Not on file Non-medical: Not on file Tobacco Use ??? Smoking status: Current Every Day Smoker ??? Tobacco comment: few a day Substance and Sexual Activity ??? Alcohol use: Never Frequency: Never ??? Drug use: Yes Types: Marijuana Comment: qod ??? Sexual activity: Not on file Lifestyle ??? Physical activity: Days per week: Not on file Minutes per session: Not on file ??? Stress: Not on file Relationships ??? Social connections: Talks on phone: Not on file Gets together: Not on file Attends rastafari service: Not on file Active member of club or organization: Not on file Attends meetings of clubs or organizations: Not on file Relationship status: Not on file ??? Intimate partner violence: Fear of current or ex partner: Not [...] Status ??? Other (Not Specified) Physical Exam Psychiatric: He has a normal mood and affect. Much less anxious than previous, good eye contact Answers appropriately Nursing note and vitals reviewed. Filed Vitals: 03/29/20 1434 BP: 124/76 Weight: 85.3 kg (188 lb) Height: 5' 11 (1.803 m) Diagnoses/Impression: 1. Anxiety busPIRone 15 MG tablet Recommendations and Plan: Cont zolot, increase buspar to tid Cautioned about daily marijuana use Orders Placed This Encounter ??? busPIRone 15 MG tablet ANT ZUNIGA DO Referring Provider: No ref. provider found PCP: ANT ZUNIGA DO documented in this encounter Plan of Treatment Not on file documented as of this encounter Visit Diagnoses Diagnosis Anxiety Anxiety state, unspecified documented in this encounter Care Teams Insurance Coder Relationship Specialty Start Date End Date Ant Zuniga DO [address] [place] [address] PCP - General FAMILY PRACTICE 10/04/19 documented as of this encounter
--- OUTSIDE RECORDS SUMMARY | 2024-08-06 00:31 | XMS_ITS | Encounter Summary ---
Author Organization [facility] Address [address] [place] [address]. 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 ANXIETY Encounter Details Date Type Department Care Team (Late st Contact Info) Description 10/06/2019 9:15 AM CELLARS SUPERVISOR Office Visit [facility] [address] [facility] [address] [place] [id number] Libia Bernal FNP [address] [place] [address] Acute Note (TRACK SURFACING MACHINE OPERATOR ANXIETY) Social History Tobacco Use Types Packs/Day Years Used Date Smoking Tobacco: Never Assessed Sex and Gender Information Value Date Recorded Sex Assigned at Not on file Legal Sex Male 6:32 PM CDT Gender Identity Not on file Sexual Orientation Not on file documented as of this encounter Last Filed Vital Signs Vital Sign Reading Time Taken Comments Blood Pressure 164/84 10/06/2019 9:16 AM CELLARS SUPERVISOR Pulse - - Temperature - - Respiratory Rate - - Oxygen Saturation - - Inhaled Oxygen Concentration - - Weight 85.7 kg (189 lb) 10/06/2019 9:16 AM CELLARS SUPERVISOR Height 182.9 cm (6') 10/06/2019 9:16 AM CELLARS SUPERVISOR Body Mass Index 25.63 10/06/2019 9:16 AM CELLARS SUPERVISOR documented in this encounter Progress Notes * Libia Bernal NP - 10/06/2019 9:15 AM CST Reason for Visit: Acute Note (TRACK SURFACING MACHINE OPERATOR ANXIETY) History of Present Illness: Nervous and anxiety when interacting with people Applying for jobs and having difficulty speaking while there Smoker Social drinker Exercises daily Eats a good diet Had a few good friends but now chooses to stay home Plays video games in his free time Long time girlfriend No sihi He is very nervous today. His mom accompanies him ROS: Review of Systems Constitutional: Negative for chills, fatigue and fever. Respiratory: Negative for cough and shortness of breath. Cardiovascular: Negative for chest pain. Neurological: Negative for dizziness. Psychiatric/Behavioral: Negative for depression and suicidal ideas. The patient is nervous/anxious. Medications: Current Outpatient Medications: ??? sertraline 50 MG tablet, Take 1 tablet (50 mg total) by mouth daily for 30 days., Disp: 30 tablet, Rfl: 1 No Known Allergies No past medical history on file. No past surgical history on file. Social History Socioeconomic History ??? Marital status: Unknown Spouse name: Not on file ??? Number of children: Not on file ??? Years of education: Not on file ??? Highest education level: Not on file Occupational History ??? Not on file Social Needs ??? Financial resource strain: Not on file ??? Food insecurity: Worry: Not on file Inability: Not on file ??? Transportation needs: Medical: Not on file Non-medical: Not on file Tobacco Use ??? Smoking status: Not on file Substance and Sexual Activity ??? Alcohol use: Not on file ??? Drug use: Not on file ??? Sexual activity: Not on file Lifestyle ??? Physical activity: Days per week: Not on file Minutes per session: Not on file ??? Stress: Not on file Relationships ??? Social connections: Talks on phone: Not on file Gets together: Not on file Attends temple service: Not on file Active member of [...] ??? Not on file Social History Narrative ??? Not on file Family History Problem Relation Name Age of Onset ??? Colon Cancer Other ??? Diabetes Other ??? Hypertension Other Family Status Relation Name Status ??? Other (Not Specified) Physical Exam Constitutional: He is oriented to person, place, and time. He appears well- developed and well-nourished. Cardiovascular: Normal rate and regular rhythm. Pulmonary/Chest: Effort normal and breath sounds normal. Musculoskeletal: He exhibits no edema. Lymphadenopathy: He has no cervical adenopathy. Neurological: He is alert and oriented to person, place, and time. Skin: Skin is warm and dry. Psychiatric: His mood appears anxious. He expresses no homicidal and no suicidal ideation. He expresses no suicidal plans and no homicidal plans. Nursing note and vitals reviewed. Filed Vitals: 10/06/19 0916 BP: (!) 164/84 Weight: 85.7 kg (189 lb) Height: 6' (1.829 m) Diagnoses/Impression: 1. Anxiety sertraline 50 MG tablet Recommendations and Plan: He states this is been going on for at least 2 years now His mom convinced him to finally get some help He is open to medication and counseling His friend had some Ativan that he tried and it really made things better. Explained to patient that he should not take other peoples medications. Long discussion about medication. Will trial Zoloft daily He has a new patient physical scheduled for approximately 1 month from now so he can follow-up at that time, sooner if needed He is going to call for counseling placed near his house and schedule an appointment Encouraged cardio exercise daily Again follow-up in 1 month, sooner if needed 25 mins with pt, > 50% spent in coordination of care or counseling Orders Placed This Encounter ??? sertraline 50 MG tablet LIBIA BERNAL NP Referring Provider: No ref. provider found PCP: ANT LOPEZ DO Cosigned by Solis Tam MD at 10/07/2019 6:52 PM CELLARS SUPERVISOR ARS SUPERVISOR ARS SUPERVISOR documented in this encounter Plan of Treatment Not on file documented as of this encounter Visit Diagnoses Diagnosis Anxiety- Primary Anxiety state, unspecified documented in this encounter Care Teams Chute Operator Relationship Specialty Start Date End Date Ant Lopez DO [address] [place] [address] PCP - General FAMILY PRACTICE 10/04/19 documented as of this encounter
--- OUTSIDE RECORDS SUMMARY | 2024-08-06 00:31 | XMS_ITS | Encounter Summary ---
Author Organization [facility] Address [address] [facility]. [place], [place] [address] [place] [address] Care Team Providers Care Construction Plant Operator Name Role Phone Unavailable Primary Care Provider Unavailabl e Encounter Details Date Type Department Care Team (Late st Contact Info) Description 04/04/[address] [facility] [address] [place], [place] [id number] Diomedes Mccabe MD [address] [address] Social History Tobacco Use Types Packs/Day Years [...]
--- OUTSIDE RECORDS SUMMARY | 2024-08-06 00:31 | XMS_ITS | Encounter Summary ---
Author Organization [facility] Address [address] [facility] [place] [address] [place] [address] Care Team Providers Care Rn Outpatient Surgery Name Role Phone Unavailable Primary Care Provider Unavailabl e Encounter Details Date Type Department Care Team (Latest Contact Info) Description 01/02/2016 Abstract [facility] Isi Marina PA-C [address] [place] [address] Social History Tobacco Use Types Packs/Day Years Used Date Smoking Tobacco: Never Assessed Sex and Gender Information Value Date Recorded Sex Assigned at Not on file Legal Sex Male 6:32 PM CDT Gender Identity Not on file Sexual Orientation Not on file documented as of this encounter Last Filed Vital Signs Vital Sign Reading Time Taken Comments Blood Pressure 118/70 01/02/2016 1:51 PM CDT Pulse - - Temperature - - Respiratory Rate - - Oxygen Saturation - - Inhaled Oxygen Concentration - - Weight 68 kg (150 lb) 01/02/2016 1:51 PM CDT Height 185.4 cm (6' 1 ) 01/02/2016 1:51 PM CDT Body Mass Index 19.79 01/02/2016 1:51 PM CDT documented in this encounter Progress Notes * Isi Marina PA-C - 01/02/2016 1:45 PM CDT Reason For Visit Acute Visit Chief Complaint red spots all over arms and torso itching no trouble breathing History of Present Illness Urticaria, Acute (Brief): The patient is being seen for an initial evaluation of acute urticaria. Symptoms: no angioedema, no eye redness, no nasal congestion and no sneezing The patient presents with complaints of bilateral truncal area, bilateral arm, bilateral antecubital area, bilateral buttock and bilateral leg hives starting 2 days ago. His symptoms are caused by noknown event. The patient is currently experiencing symptoms. No associated symptoms are reported. Review of Systems Constitutional, ENT, Cardiovascular, Respiratory and Gastrointestinal review of systems normal except as noted. Integumentary: skin lesion. Current Meds 1. No Reported Medications Recorded KATHLEEN = N; ; Last Updated By: Sima Boyer; 01/02/2016 2:01:29 PM Allergies 1. No Known Drug Allergies Recorded By: Sima Boyer; 01/02/2016 1:54:52 PM Vitals Signs [Data Includes: Current Encounter] Temperature: 98.2 F Systolic: 118 Diastolic: 70 Height: 6 ft 1 in Weight: 150 lb BMI Calculated: 19.79 BSA Calculated: 1.9 Physical Exam Constitutional General appearance: No acute [...] without murmurs. Musculoskeletal Gait and station: Normal. Skin Confluent urticaria on arms, legs, trunk and neck. No pustules or vesicles. Psychiatric Mood and affect: Normal. Assessment 1. Idiopathic urticaria (708.1) (L50.1) Plan Idiopathic urticaria 1. PredniSONE 20 MG Oral Tablet; Take 2 daily for 7 days, then 1 daily for 7 days 2. Follow up if worse or not better; Status:Complete; Done: 02Jan2016 Signatures Electronically signed by : Isi Marina PA-C; Jan 02 2016 2:03PM BILLING CHECKER (Author) Electronically signed by : Solis Vides M.D.; Jan 02 2016 2:29PM BILLING CHECKER documented in this encounter Plan of Treatment Not on file documented as of this encounter Visit Diagnoses Not on filedocumented in this encounter
--- OUTSIDE RECORDS SUMMARY | 2024-08-06 00:31 | XMS_ITS | Encounter Summary ---
Author Organization [facility] Address [address] [place] [address]. [place], [place] [id number] [place] [address] Care Team Providers Care Director Of Premium Seat Sales Name Role Phone Yasmine Zuniga DO Primary Care Provider Reason for Visit * Reason Onset Date Comments Information 10/31/2019 Encounter Details Date Type Department Care Team (Late st Contact Info) Description 10/31/[address] [facility] [address] [facility] [address] [place] [address] Yasmine Zuniga DO [address] [place] [address] Information Social History Tobacco Use Types Packs/Day Years Used Date Smoking Tobacco: Never Assessed Sex and Gender Information Value Date Recorded Sex Assigned at Not on file Legal Sex Male 6:32 PM CDT Gender Identity Not on file Sexual Orientation Not on file documented as of this encounter Progress Notes * Tasha Pickard - 10/31/2019 1:55 PM CDT APPT ON 12/16/2019/BW * Tasha Pickard - 10/31/2019 1:32 PM CDT LMOM TO RESCHED APT ON 11/09/2019 DUE TO OFFICE CLOSING AT 3/BW documented in this encounter Plan of Treatment Not on file documented as of this encounter Visit Diagnoses Not on filedocumented in this encounter Care Teams Director Of Premium Seat Sales Relationship Specialty Start Date End Date Yasmine Zuniga DO [address] [place] [address] PCP - General FAMILY PRACTICE 10/04/19 documented as of this encounter
--- OUTSIDE RECORDS SUMMARY | 2024-08-06 00:31 | XMS_ITS | Encounter Summary ---
Author Organization [facility] Address [address] [place] [address]. [place], [place] [address] [place] [address] Care Team Providers Care Wax Molder Name Role Phone Yasmine Zuniga DO Primary Care Provider Encounter Details Date Type Department Care Team (Latest Contact Info) Description 10/06/2019 Travel Social History Tobacco Use Types Packs/Day [...] on filedocumented in this encounter Care Teams Wax Molder Relationship Specialty Start Date End Date Yasmine Zuniga DO [address] [place] [address] PCP - General FAMILY PRACTICE 10/04/19 documented as of this encounter
--- OUTSIDE RECORDS SUMMARY | 2024-08-06 00:31 | XMS_ITS | Encounter Summary ---
Author Organization [facility] Address [address] [place] [address]. [place], [place] [address] [place] [address] Care Team Providers Care Javascript Ui Developer Name Role Phone Yasmine Zuniga DO Primary Care Provider [phone] Reason for Visit * Reason Onset Date Comments Question 07/17/2023 Encounter Details Date Type Department Care Team (Late st Contact Info) Description 07/17/2023 Telephone [facility] [address] [facility] [address] [place] [address] Yasmine Zuniga DO [address] [place] [address] Question Social History Tobacco Use Types Packs/Day Years [...] n file documented as of this encounter Progress Notes * Jackie Jensen - 08/26/2023 9:08 AM CST COMPLETING AT THIS TIME. NO RESPONSE FROM PATIENT PENS ASSEMBLER * Jackie Jensen - 08/10/2023 9:44 AM CST Letter mailed PENS ASSEMBLER * Jackie Jensen - 08/05/2023 11:52 AM CST lmom PENS ASSEMBLER * Jackie Jensen - 07/24/2023 8:57 AM CST lmom PENS ASSEMBLER * Jackie Jensen - 07/20/2023 2:44 PM CST lmom PENS ASSEMBLER * Yasmine Zuniga DO - 07/17/2023 4:12 PM CST Nodules are graded according to a system and as it says, no further w/u needed because does not meet criteria Concern should be that he is a smoker and should stop that now PENS ASSEMBLER * Jackie Jensen - 07/17/2023 3:35 PM CST Dad calling for patient regarding a CT that he had done at [facility] on 07/10. It showed 6 mm pleural left lower lobe nodule (104) Patients dad is concerned regarding this finding and is asking if anything needs to be done or if they should be concerned? NCB: pt or mom DAD is not on HIPAA PENS ASSEMBLER documented in this encounter Plan of Treatment Not on file documented as of this encounter Visit Diagnoses Not on filedocumented in this encounter Care Teams Javascript Ui Developer Relationship Specialty Start Date End Date Yasmine Zuniga DO [address] [place] [address] PCP - General FAMILY PRACTICE 10/04/19 documented as of this encounter
--- OUTSIDE RECORDS SUMMARY | 2024-08-06 00:36 | XMS_ITS | Referral Summary ---
Author Organization [facility] Address [address] [place] [address] Care Team Providers Care Doper Operator Name Role Phone Unknown, Notinfile Primary Care Provider Unavail able Allergies No known active allergies Social History Tobacco Use Types Packs/Day Years Used Date Smoking Tobacco: Every Day Cigarettes Tobacco Cessation:Ready to Q uit: Not Asked; Counseling Given: Not Answered Alcohol Use Standard Drinks/Week Comments Yes 0 (1 standard drink = 0.6 oz pur e alcohol) Socially Personal Safety Answer Date Recorded Have you ever been in or are you currently in a harmful physical or emotional relationship or is someone making you feel afraid or unsafe? Denies 07/09/2023 Sex and Gender Information Value Date Recorded Sex Assigned at Not on file Legal Sex Male 6:15 PM RN PSYCH Gender Identity Not on file Sexual Orientation Not on file Last Filed Vital Signs Vital Sign Reading Time Taken Comments Blood Pressure 133/79 07/09/2023 11:00 PM RN PSYCH Pulse 76 07/09/2023 11:00 PM RN PSYCH Temperature 36.8 ??C (98.2 ??F) 07/09/2023 7:03 PM CS T Respiratory Rate 16 07/09/2023 10:4 0 PM RN PSYCH Oxygen Saturation 96% 07/09/2023 11: 00 PM RN PSYCH Inhaled Oxygen Concentration - - Weight 82.5 kg (181 lb 14.1 oz) 07/09/2023 7:03 PM RN PSYCH Height 182.9 cm (6') 07/09/2023 7:03 PM RN PSYCH Body Mass Index 24.67 07/09/2023 7:03 PM RN PSYCH Plan of Treatment Not on file Insurance [facility] [place] [address] Care Teams Doper Operator Relationship Specialty Start Date End Date Unknown, Notinfile PCP - General 07/09/23
--- OUTSIDE RECORDS SUMMARY | 2024-08-06 00:36 | XMS_ITS | Clinical Summary ---
Author Organization [facility] Address [address] [place] [address] Care Team Providers Care Rail Maintenance Worker Name Role Phone Unknown, Notinfile Primary Care [...] on file Legal Sex Male 6:15 PM DEPUTY CONTROLLER Gender Identity Not on file Sexual Orientation Not on file Obstetrics History Last Filed Vital Signs Vital Sign Reading Time Taken Comments Blood Pressure 133/79 07/09/2023 11:00 PM DEPUTY CONTROLLER Pulse 76 07/09/2023 11:00 PM DEPUTY CONTROLLER Temperature 36.8 ??C (98.2 ??F) 07/09/2023 7:03 PM CS T Respiratory Rate 16 07/09/2023 10:4 0 PM DEPUTY CONTROLLER Oxygen Saturation 96% 07/09/2023 11: 00 PM DEPUTY CONTROLLER Inhaled Oxygen Concentration - - Weight 82.5 kg (181 lb 14.1 oz) 07/09/2023 7:03 PM DEPUTY CONTROLLER Height 182.9 cm (6') 07/09/2023 7:03 PM DEPUTY CONTROLLER Body Mass Index 24.67 07/09/2023 7:03 PM DEPUTY CONTROLLER Plan of Treatment Health Maintenance Due Date Last Done Comments Depression Screening 1995 Hepatitis C Screening 1995 Pneumococcal vaccine <65 (1 of 2 - PCV) 2001 Regular Well Visit/Exam 18-64 2013 Influenza Vaccine (#1) 2024 DTaP/Tdap/Td Vaccine (8 - Td or Tdap) 09/20/2030 09/20/2020, 03/01/2010, 11/20/2000, Additional history exists Varicella Vaccines Completed 03/01/2010, 0 11/20/2000, 08/24/1996 HPV Vaccines Aged Out No longer eligi ble based on patient's age to [place] [phone] Care Teams Rail Maintenance Worker Relationship Specialty Start Date End Date Unknown, Notinfile PCP - General 07/09/23
--- OUTSIDE RECORDS SUMMARY | 2024-08-06 00:36 | XMS_ITS | Clinical Summary ---
Author Organization [facility] Address [address] [place] [address] Phone Care Team Providers Care Radiation Oncology Manager Name Role Phone Yasmine Zuniga DO Primary Care Provider [phone] Social History Tobacco Use Types Packs/Day Years Used Date Smoking Tobacco: Never Assessed Sex and Gender Information Value Date Recorded Sex Assigned at Not on file Gender Identity Not on file Sexual Orientation Not on file Plan of Treatment Health Maintenance Due Date Last Done Comments DTAP/TDAP/TD VACCINES (1 - Tdap) 2014 HEPATITIS B VACCINES (1 of 3 - 19+ 3-dose series) 2014 INFLUENZA VACCINE (#1) 2024 HPV VACCINES Aged Out No longer eligi ble based on patient's age to complete this topic PNEUMOCOCCAL VACCINE 0-64 YEARS Aged Out No longer eligible based on patient's age to complete this topic Care Teams Radiation Oncology Manager Relationship Specialty Start Date End Date Yasmine Zuniga DO [address] [facility] [address] [place] [address] PCP - General Family Practice 03/05/10
--- OUTSIDE RECORDS SUMMARY | 2024-08-06 00:36 | XMS_ITS | Encounter Summary ---
Author Organization [facility] Healthcare Address [address] [place] [address] Care Team Providers Care Filter Changing Technician Name Role Phone Unknown, Notinfile Primary Care Provider Unavail able Reason for Visit * Reason Comments Fall Chest Wall Pain Encounter Details Date Type Department Care Team (Late st Contact Info) Description 07/09/2023 10:36 PM CHISEL GRINDER - 07/09/2023 11:57 PM CHISEL GRINDER Emergency [facility] Emergency Department [address] [place] [id number] Trauma of chest, initial encounter (Primary Dx) Discharge Disposition: Left Against Medical Advice Social History Tobacco Use Types Packs/Day Years [...] on file Legal Sex Male 6:15 PM CHISEL GRINDER Gender Identity Not on file Sexual Orientation Not on file documented as of this encounter Last Filed Vital Signs Vital Sign Reading Time Taken Comments Blood Pressure 133/79 07/09/2023 11:00 PM CHISEL GRINDER Pulse 76 07/09/2023 11:00 PM CHISEL GRINDER Temperature 36.8 ??C (98.2 ??F) 07/09/2023 7:03 PM CS T Respiratory Rate 16 07/09/2023 10:4 0 PM CHISEL GRINDER Oxygen Saturation 96% 07/09/2023 11: 00 PM CHISEL GRINDER Inhaled Oxygen Concentration - - Weight 82.5 kg (181 lb 14.1 oz) 07/09/2023 7:03 PM CHISEL GRINDER Height 182.9 cm (6') 07/09/2023 7:03 PM CHISEL GRINDER Body Mass Index 24.67 07/09/2023 7:03 PM CHISEL GRINDER documented in this encounter Discharge Instructions * Discharge Instructions* Florencia Kimbrough NP - 07/09/2023 11:46 PM CHISEL GRINDER You are leaving against medical advice, your welcome back any time will very happy to help you. Meantime make sure to follow-up with primary care doctor for further evaluation return to ED as soon aspossible for any worsening of symptoms. EL GRINDER documented in this encounter Discharge Disposition Disposition Code Departure Means Destination Comment s Left Against Medical Advice documented in this encounter ED Notes * Florencia Kimbrough NP - 07/09/2023 11:46 PM CST Images from the original note were not included. CHIEF COMPLAINT: Chief Complaint Patient presents with Fall Chest Wall Pain HPI 11:57 PM Garry Zhang is a 27 y.o. male presenting to the ED c/o fall. He states that this prior to arrival he was on a ladder, he lost his balance and fell onto the ground and hit some metal object on his right side. He heard some cracking sound at the time. Since then he is having pain to right side of his chest that get worse with movement and activities. He denies any head or neck injury.Denies any loss of sensation, numbness or tingling or weakness to his arm. Denies any abdominal pain. Denies any nausea or vomiting. Denies any other complaint. History provided by patient. PCP: Unknown, Notinfile PAST MEDICAL HISTORY No past medical history on file. PAST SURGICAL HISTORY No past surgical history on file. FAMILY HISTORY No family history on file. MEDICATIONS GIVEN IN THE ED Medications morphine injection 4 mg (4 mg intravenous Not Given 07/09/232356) lidocaine (LIDODERM) 5 % patch 1 patch (1 patch transdermal Medication Applied 07/09/232040) ketorolac (TORADOL) 30 mg/mL (1 mL) injection 15 mg (15 mg intravenous Given 07/09/232039) ioversoL (OPTIRAY 350) syringe 100 mL (100 mL intravenous Contrast Given 07/09/232104) CURRENT HOME MEDICATIONS Current Facility-Administered Medications: lidocaine (LIDODERM) 5 % patch 1 patch, 1 patch, transdermal, Daily, Florencia Kimbrough, KAMRYN, 1 patch at 07/09/232040 morphine injection 4 mg, 4 mg, intravenous, Once, Batool Vargas MD No current outpatient medications on file. ALLERGIES No Known Allergies SOCIAL HISTORY Social History Tobacco Use Smoking status: Every Day Types: Cigarettes Smokeless tobacco: Not on file Substance and Sexual Activity Drug use: Not on file Sexual activity: Not on file Alcohol Use: Not on file PHYSICAL EXAM TRIAGE VITAL SIGNS: ED Triage Vitals [07/09/23 1903] Temp Pulse Resp BP SpO2 36.8 ??C (98.2 ??F) 79 15 139/78 100 % Temp src Heart Rate Source Patient Position BP Location FiO2 (%) Oral -- -- -- -- Height Height Method Weight Weight Method 1.829 m (6') Stated 82.5 kg (181 lb 14.1 oz) Standing scale Physical Exam Vitals and nursing note reviewed. Constitutional: General: He is not in acute distress. Appearance: Normal appearance. He is well-developed. He is not ill-appearing. HENT: Head: Normocephalic and atraumatic. Jaw: There is normal jaw occlusion. Right Ear: Hearing and external ear normal. Left Ear: Hearing and external ear normal. Nose: Nose normal. Mouth/Throat: Mouth: Mucous membranes are moist. Eyes: General: Lids are normal. Vision grossly intact. Extraocular Movements: Extraocular movements intact. Conjunctiva/sclera: Conjunctivae normal. Neck: Trachea: Trachea and phonation normal. Cardiovascular: Rate and Rhythm: Normal rate and regular rhythm. Pulses: Normal pulses. Radial pulses are 2+ on the right side and 2+ on the left side. Heart sounds: No murmur heard. Pulmonary: Effort: Pulmonary effort is normal. No respiratory distress. Breath sounds: Normal breath sounds and air entry. Chest: Chest wall: Tenderness present. Comments: Tenderness on palpitation on right lateral chest. No obvious erythema, edema, deformity noted on exam. Abdominal: Palpations: Abdomen is soft. Tenderness: There is no abdominal tenderness. Musculoskeletal: General: No swelling. Cervical back: Full passive range of motion without pain, normal range of motion and neck supple. Right lower leg: No edema. Left lower leg: No edema. Skin: General: Skin is warm and dry. Capillary Refill: Capillary refill takes less than 2 seconds. Neurological: General: No focal deficit present. Mental Status: He is alert. Psychiatric: Attention and Perception: Attention and perception normal. Mood and Affect: Mood and affect normal. Speech: Speech normal. Behavior: Behavior normal. Behavior is cooperative. Thought Content: Thought content normal. LABS Labs Reviewed COMPREHENSIVE METABOLIC PANEL - Abnormal Result Value Sodium 141 Potassium, pl 4.7 Chloride 102 CO2 27 Anion gap 12 BUN 20 Creatinine 1.00 Glucose 96 Calcium 10.3 Bilirubin, total 0.4 Protein, pl 8.9 (*) Albumin 5.1 (*) Alk phos 139 (*) ALT 24 AST 29 CBC WITH AUTO DIFFERENTIAL - Abnormal WBC 14.5 (*) Hgb 14.7 Hct 45.4 Plt 267 MPV 10.2 RBC 4.82 MCV 94.2 MCH 30.5 MCHC 32.4 RDW CV 12.7 RDW SD 43.8 NRBC abs 0.00 DIFFERENTIAL AUTO - Abnormal Neutrophil abs 12.0 (*) Imm gran abs 0.1 Lymphocyte abs 1.6 Monocyte abs 0.8 Eosinophil abs 0.0 Basophil abs 0.0 Neutrophil pct 82.7 Imm gran pct 0.6 Lymphocyte pct 10.9 Monocyte pct 5.5 Eosinophil pct 0.1 Basophil pct 0.2 EGFR eGFR 106 POCT CREATININE FOR CONTRAST EVALUATION Creatinine POC 1.[address] Chest W Contrast Result Date: 07/09/2023 Narrative: EXAM DESCRIPTION: CT CHEST W CONTRAST REASON FOR STUDY: Pulmonary contusion? Patient states that he fell approx 2-3ft from a small ladder and struck his right chest wall. Endorses pain to right ribs. TECHNIQUE: CT scan of the chest performed with intravenous contrast using helical scanning technique with dynamic intravenous contrast injection. Reconstructed coronal and sagittal MPR images reviewed. All images stored on PACS. Automated exposure control was used as a dose optimization technique for this examination. CONTRAST TYPE/DOSE: 100mL of IOVERSOL 350 MG IODINE/ML INTRAVENOUS SYRINGE injected via intravenous COMPARISON: Chest radiograph performed on the same day. REFERENCE: Per ACR white paper recommendations, unless otherwise specified no follow-up imaging is recommended for incidental renal and adrenal lesions per consensus recommendations based on imaging criteria. Further lab evaluation could be pursued based on clinical findings. FINDINGS: LUNGS: The lungs are wellinflated. There is minimal right basilar atelectasis. A trace right pleural effusion is seen. No pneumothorax is seen. 6 mm pleural left lower lobe nodule (104). The patient does not meet age criteria for [facility] follow-up. MEDIASTINUM/CASSIDY: Small amount of anterior mediastinal soft tissue is noted. This likely represents residual thymic tissue. No mediastinal or hilar lymphadenopathy. HEART: The heart is normal in size and obscured by motion. No significant pericardial effusion is seen. VASCULATURE: Significant motion artifact within the aorta limits evaluation. No gross aneurysm or dissection is seen given the limitations. AXILLA: Prominent indeterminate right axillary lymph nodes. For reference is a 1.6 x 1.0 cm right axillary lymph node (34). CHEST WALL: No significant chest wall hematoma. Minimal subcutaneous stranding within the right posterior chest wall HARDWARE/LINES/TUBES: None. UPPER ABDOMEN: Cholelithiasis within a partially imaged gallbladder. A small hiatal hernia is present. MUSCULOSKELETAL: Likely nondisplaced right anterolateral 6th rib fracture. Mildly displacedright lateral 7th rib fracture. Minimally displaced right lateral 8th rib fracture versus motion. Subtle minimally displaced right lateral 9th rib fracture. Mildly displaced right posterior 10th rib fracture. Mildly displaced right posterior 11th rib fracture. Nondisplaced right posterior 12th rib fracture. No compression fracture. OTHER: No other significant abnormality. IMPRESSION: 1. Likely 6-12th rib fractures. 2. Minimal right basilar atelectasis with trace effusion. 3. Small amount of anterior mediastinal soft tissue, likely thymic tissue. No definite anterior mediastinal hematoma. 4. Prominent indeterminate right axillary lymph nodes, likely reactive. THIS IS AN ELECTRONICALLY VERIFIED FINAL REPORT 07/09/2023 9:31 PM - Electronically signed by Jacobo Coronel M.D. AG: AUDRA Report ID: [id number] Reading Location: [id number] XR Ribs Right W PA Chest 3 or More Views Result Date: 07/09/2023 Narrative: EXAM DESCRIPTION: XR RIBS RIGHT W PA CHEST REASON FOR STUDY: Back pain or radiculopathy,trauma Patient states that today he fell approx 2-3ft from a small ladder and struck his right chest wall. Endorses pain to right ribs. TECHNIQUE: Frontal view of the chest and two views of the rightribs COMPARISON: None FINDINGS: The lungs are well inflated. Minimal right basilar airspace opacities. No pleural effusion. No pneumothorax is seen. Heart size and mediastinal contours are normal. Mildly displaced 1 part right 6th, 7th, 8th, 9th rib fractures. IMPRESSION: 1. Mildly displaced right 6th-9th rib fractures. No pneumothorax. 2. Minimal right basilar opacities, likely atelectasis. THISIS AN ELECTRONICALLY VERIFIED FINAL REPORT 07/09/2023 7:58 PM - Electronically signed by Jacobo Coronel M.D. AG: AUDRA Report ID: [id number] Reading Location: [id number] ED COURSE/MEDICAL DECISION MAKING ED Course as of 07/09/232356 Time: 07/09 2355 Comment: He came in after he fell from a ladder hit a metal object on right side of his chest, on exam he does not appear to be in distress vitals unremarkable, does have a 6 through 12 rib fracture,this is trauma fall however he does not want to stay or be transferred, he is insisting that he is had to go home because he would take her his young kids. Explained him a risk and benefit, he verbalized understanding, he is alert oriented x4, but he is still leaving against medical advice. By: Florencia Kimbrough NP Procedures FINAL IMPRESSION Trauma of chest, initial encounter Left AMA PATIENT INSTRUCTED TO FOLLOW UP No follow-up provider specified. DISCHARGE MEDICATIONS Your medication list as of July 09, 2023 11:46 PM You have not been prescribed any medications. This examination was transcribed using the [employer] voice recognition system without human superintendent horticulture. In an effort to expedite patient care, this report has not been adjusted for typographical, grammatical, and syntax by a trained medical staff manager. Florencia Kimbrough NP 07/09/232356 Cosigned by Batool Vargas MD at 07/10/2023 5:58 AM CHISEL GRINDER EL GRINDER EL GRINDER * Sabrina Torres, RN - 07/09/2023 6:58 PM CST Patient states that he fell approx 2-3ft from a small ladder and struck his right chest wall. Endorses pain to right ribs. Tylenol taken [employer] with some relief. EL GRINDER documented in this encounter Plan of Treatment Not on file documented as of this encounter Procedures Procedure Name Priority Date/Time Associated Diagnosis Comments CT CHEST W CONTRAST ED 07/09/2023 9 :10 PM CHISEL GRINDER POCT CREATININE FOR CONTRAST EVALUATION Routine 07/09/2023 8:23 PM CHISEL GRINDER EGFR STAT 07/09/2023 8:21 PM CHISEL GRINDER DIFFERENTIAL AUTO STAT 07/09/2023 8:2 1 PM CHISEL GRINDER CBC WITH AUTO DIFFERENTIAL STAT 07/09/2023 8:21 PM CHISEL GRINDER COMPREHENSIVE METABOLIC PANEL STAT 07/09/2023 8:21 PM CHISEL GRINDER XR RIBS RIGHT W PA CHEST ED 07/09/2023 7:54 PM CHISEL GRINDER documented in this encounter Results * CT Chest W Contrast (07/09/2023 9:10 PM CHISEL GRINDER) Anatomical Region Laterality Modality Body N/A Computed Tomogra phy 07/09/2023 9:18 PM CHISEL GRINDER Addenda Addendum by Jacobo Coronel MD on 08/31/2023 12:11 PM CHISEL GRINDER ADDENDUM: This addendum report supersedes the original report dated 07/09/2023 MIPS addendum. ??The right-sided rib fractures are 1 part. END OF ADDENDUM REPORT THIS IS AN ELECTRONICALLY VERIFIED FINAL REPORT 08/31/2023 12:11 PM ??Addendum Electronically signed by Jacobo Coronel M.D. AG: AG D: ??08/31/2023 12:11 PM T: ??08/31/2023 12:11 PM Report ID: [id number] Reading Location: ??[id number] Narrative 07/09/2023 9:31 PM CHISEL GRINDER EXAM DESCRIPTION: CT CHEST W CONTRAST REASON FOR STUDY: Pulmonary contusion? ?? Patient states that he fell approx 2-3ft from a small ladder and struck his right chest wall. Endorses pain to right ribs. ?? TECHNIQUE: CT scan of the chest performed with intravenous contrast using helical scanning technique with dynamic intravenous contrast injection. ?? Reconstructed coronal and sagittal MPR images reviewed. All images stored on PACS. ??Automated exposure control was used as a dose optimization technique for this examination. CONTRAST TYPE/DOSE: 100mL of IOVERSOL 350 MG IODINE/ML INTRAVENOUS SYRINGE ?? injected via ??intravenous COMPARISON: Chest radiograph performed on the same day. REFERENCE: Per ACR white paper recommendations, unless otherwise specified no follow-up imaging is recommended for incidental renal and adrenal lesions per consensus recommendations based on imaging criteria. Further lab evaluation could be pursued based on clinical findings. FINDINGS: LUNGS: ??The lungs are well inflated. ??There is minimal right basilar atelectasis. ??A trace right pleural effusion is seen. ??No pneumothorax is seen. ?? 6 mm pleural left lower lobe nodule (104). ??The patient does not meet age criteria for [facility] follow-up. MEDIASTINUM/CASSIDY: ?? Small amount of anterior mediastinal soft tissue is noted. This likely represents residual thymic tissue. ??No mediastinal or hilar lymphadenopathy. HEART: ??The heart is normal in size and obscured by motion. ??No significant pericardial effusion is seen. VASCULATURE: ??Significant motion artifact within the aorta limits evaluation. ?? No gross aneurysm or dissection is seen given the limitations. AXILLA: ??Prominent indeterminate right axillary lymph nodes. ??For reference is a 1.6 x 1.0 cm right axillary lymph node (34). CHEST WALL: ??No significant chest wall hematoma. ??Minimal subcutaneous stranding within the right posterior chest wall HARDWARE/LINES/TUBES: ?? None. UPPER ABDOMEN: ??Cholelithiasis within a partially imaged gallbladder. ??A small hiatal hernia is present. MUSCULOSKELETAL: ??Likely nondisplaced right anterolateral 6th rib fracture. ?? Mildly displaced right lateral 7th rib fracture. ??Minimally displaced right lateral 8th rib fracture versus motion. ??Subtle minimally displaced right lateral 9th rib fracture. ??Mildly displaced right posterior 10th rib fracture. Mildly displaced right posterior 11th rib fracture. ??Nondisplaced right posterior 12th rib fracture. ??No compression fracture. OTHER: ??No other significant abnormality. IMPRESSION: 1. ?? Likely 6-12th rib fractures. 2. ?? Minimal right basilar atelectasis with trace effusion. 3. ?? Small amount of anterior mediastinal soft tissue, likely thymic tissue. ?? No definite anterior mediastinal hematoma. 4. ?? Prominent indeterminate right axillary lymph nodes, likely reactive. THIS IS AN ELECTRONICALLY VERIFIED FINAL REPORT 07/09/2023 9:31 PM - Electronically signed by ??Jacobo Coronel M.D. AG: AG D: ??07/09/2023 9:31 PM T: ??07/09/2023 9:31 PM Report ID: [id number] Reading Location: ??[id number] Procedure Note Jacobo Coronel MD - 07/09/2023 EXAM DESCRIPTION: CT CHEST W CONTRAST REASON FOR STUDY: Pulmonary contusion? Patient states that he fell approx 2-3ft from a small ladder and struckhis right chest wall. Endorses pain to right ribs. TECHNIQUE: CT scan of the chest performed with intravenous contrast using helical scanning technique with dynamic intravenous contrast injection. Reconstructed coronal and sagittal MPR images reviewed. All images storedon PACS. Automated exposure control was used as a dose optimizationtechnique for this examination. CONTRAST TYPE/DOSE: 100mL of IOVERSOL 350 MG IODINE/ML INTRAVENOUS SYRINGE injected via intravenous COMPARISON: Chest radiograph performed on the same day. REFERENCE: Per ACR white paper recommendations, unless otherwise specifiedno follow-up imaging is recommended for incidental renal and adrenal lesionsper consensus recommendations based on imaging criteria. Further labevaluation could be pursued based on clinical findings. FINDINGS: LUNGS: The lungs are well inflated. There is minimal rightbasilar atelectasis. A trace right pleural effusion is seen. No pneumothorax is seen. 6 mm pleural left lower lobe nodule (104). The patient does notmeet age criteria for [facility] follow[facility]up. MEDIASTINUM/CASSIDY: Small amount of anterior mediastinal soft tissue isnoted. This likely represents residual thymic tissue. No mediastinal or hilar lymphadenopathy. HEART: The heart is normal in size and obscured by motion. Nosignificant pericardial effusion is seen. VASCULATURE: Significant motion artifact within the aorta limitsevaluation. No gross aneurysm or dissection is seen given the limitations. AXILLA: Prominent indeterminate right axillary lymph nodes. Forreference is a 1.6 x 1.0 cm right axillary lymph node (34). CHEST WALL: No significant chest wall hematoma. Minimal subcutaneous stranding within the right posterior chest wall HARDWARE/LINES/TUBES: None. UPPER ABDOMEN: Cholelithiasis within a partially imaged gallbladder. Asmall hiatal hernia is present. MUSCULOSKELETAL: Likely nondisplaced right anterolateral 6th ribfracture. Mildly displaced right lateral 7th rib fracture. Minimally displacedright lateral 8th rib fracture versus motion. Subtle minimally displaced right lateral 9th rib fracture. Mildly displaced right posterior 10th ribfracture. Mildly displaced right posterior 11th rib fracture. Nondisplaced right posterior 12th rib fracture. No compression fracture. OTHER: No other significant abnormality. IMPRESSION: 1. Likely 6-12th rib fractures. 2. Minimal right basilar atelectasis with trace effusion. 3. Small amount of anterior mediastinal soft tissue, likely thymictissue. No definite anterior mediastinal hematoma. 4. Prominent indeterminate right axillary lymph nodes, likely reactive. THIS IS AN ELECTRONICALLY VERIFIED FINAL REPORT 07/09/2023 9:31 PM - Electronically signed by Jacobo Coronel M.D. AG: AUDRA Report ID: [id number] Reading Location: [id number] Florencia Kimbrough NP IMG CT PROCEDURES Edited Result - Final * POCT creatinine for contrast evaluation (07/09/2023 8:23 PM CHISEL GRINDER) Creatinine POC 1.00 0.80 - 1.30 mg/dL [facility]ERVE Comment:Testing performed by : [facility], [address] [place] [address]., [id number] Blood 07/09/2023 8:23 PM CHISEL GRINDER 07/09/2023 8:23 PM CHISEL GRINDER us Notinfile Unknown POINT OF CARE TEST ORDERABLES Final Result Performing Organization Address City/State/[facility] Co de Phone Number [facility]ERV[facility] [address] [facility] [place] Department [place] [address] * eGFR (07/09/2023 8:21 PM CHISEL GRINDER) Pathologist [facility] eGFR 106 mL/min/1. 73 m2 HERVE Comment: Interpretive Data Reference Interval Normal ?>/= 90 mL/min/1.73m2 Mildly decreased* ? 60 - 89 mL/min/1.73m2 Mildly to moderately decreased ?45 - 59 mL/min/1.73m2 Moderately to severely decreased ??30 - 44 mL/min/1.73m2 Severely decreased ?15 - 29 mL/min/1.73m2 Kidney Failure ?< 15 ??mL/min/1.73m2 *Relative to young adult level Estimated glomerular filtration rate is determined by the 2020 CKD-EPI equation recommended by the National Kidney Foundation (A Unifying Approach to GFR Estimation: Recommendations of the NKF-ASK Task Force on Reassessing the Inclusion of Race in Diagnosing Kidney Disease, JASN 2020). The CKD-EPI equation should not be used for patients with unstable renal function and has not been validated in children and those over 70. Current interpretive data was last reviewed 2021. Testing performed by: [facility], [address] [place] [address]., [id number] Blood 07/09/2023 8:21 PM CHISEL GRINDER 07/09/2023 8:28 PM CHISEL GRINDER us Florencia Kimbrough NP LAB BLOOD ORDERABLES Final Resul t [facility] [address] [facility] [place] Department [place] [address] * (ABNORMAL) Differential, auto (07/09/2023 8:21 PM CHISEL GRINDER) Neutrophil abs 12.0(H) 1.5 - 6.5 K/cumm [facility]ERVE Comment:Testing performed by : [address] [address] Imm gran abs 0.1 0.0 - 0.1 K/cumm [facility]ERVE Comment:Testing performed by : [address] [address] Lymphocyte abs 1.6 0.8 - 3.3 K/cumm [facility]ERVE Comment:Testing performed by : [address] [address] Monocyte abs 0.8 0.2 - 0.8 K/cumm HERVE Comment:Testing performed by : [address] [address] Eosinophil abs 0.0 0.0 - 0.5 K/cumm [facility]ERVE Comment:Testing performed by : [address] [address] Basophil abs 0.0 0.0 - 0.1 K/cumm [facility]ERVE Comment:Testing performed by : [address] [address] Neutrophil pct 82.7 % [facility]ERVE Comment: Interpretive Data Percent cell count reference ranges are not reported, since discordance with absolute values may lead to misinterpretation of CBC data. Current Interpretive Data was last revised on 2017. Testing performed by: [address] [address] Imm gran pct 0.6 % [facility]ERVE Comment: Interpretive Data Percent cell count reference ranges are not reported, since discordance with absolute values may lead to misinterpretation of CBC data. Current Interpretive Data was last revised on 2017. Testing performed by: [address] [address] Lymphocyte pct 10.9 % [facility]ERVE Comment: Interpretive Data Percent cell count reference ranges are not reported, since discordance with absolute values may lead to misinterpretation of CBC data. Current Interpretive Data was last revised on 2017. Testing performed by: [address] [address] Monocyte pct 5.5 % [facility]ERVE Comment: Interpretive Data Percent cell count reference ranges are not reported, since discordance with absolute values may lead to misinterpretation of CBC data. Current Interpretive Data was last revised on 2017. Testing performed by: [address] [address] Eosinophil pct 0.1 % [facility]ERVE Comment: Interpretive Data Percent cell count reference ranges are not reported, since discordance with absolute values may lead to misinterpretation of CBC data. Current Interpretive Data was last revised on 2017. Testing performed by: [address] [address] Basophil pct 0.2 % [facility]ERVE Comment: Interpretive Data Percent cell count reference ranges are not reported, since discordance with absolute values may lead to misinterpretation of CBC data. Current Interpretive Data was last revised on 2017. Testing performed by: [address] [address] Blood 07/09/2023 8:21 PM CHISEL GRINDER 07/09/2023 8:28 PM CHISEL GRINDER us Florencia Kimbrough NP LAB BLOOD ORDERABLES Final Resul t [facility] AHUJA [address] [facility] [place] Department [place] [address] * (ABNORMAL) CBC with auto differential (07/09/2023 8:21 PM CHISEL GRINDER) WBC 14.5(H) 3.8 - 9.9 K/cumm HERVE AHUJA Comment:Testing performed by : [address] [place] [address] Hgb 14.7 13.0 - 17.5 g/dL HERVE Comment: Interpretive Data A reference range for this assay has not been established for patients with an unknown legal sex. Please refer to the laboratory test catalog for established sex-specific reference intervals. Current interpretive data was last revised on 2023. Testing performed by: [address] [address] Hct 45.4 38.9 - 50.3 % HERVE Comment: Interpretive Data A reference range for this assay has not been established for patients with an unknown legal sex. Please refer to the laboratory test catalog for established sex-specific reference intervals. Current interpretive data was last revised on 2023. Testing performed by: [address] [address] Plt 267 150 - 400 K/cumm HERVE Comment:Testing performed by : [address] [address] MPV 10.2 9.1 - 12.3 fL HERVE Comment:Testing performed by : [address] [address] RBC 4.82 4.30 - 5.80 M/cumm HERVE Comment: Interpretive Data A reference range for this assay has not been established for patients with an unknown legal sex. Please refer to the laboratory test catalog for established sex-specific reference intervals. Current interpretive data was last revised on 2023. Testing performed by: [address] [address] MCV 94.2 81.3 - 96.4 fL HERVE Comment:Testing performed by : [address] [address] MCH 30.5 27.1 - 33.3 pg HERVE Comment:Testing performed by : [address] [address] MCHC 32.4 32.3 - 35.7 g/dL HERVE Comment:Testing performed by : [address] [address] RDW CV 12.7 11.1 - 14.9 % HERVE AHUJA Comment:Testing performed by : [address] [address] RDW SD 43.8 35.7 - 48.1 fL HERVE AHUJA Comment:Testing performed by : [address] [address] NRBC abs 0.00 0.00 - 0.01 K/cumm HERVE AHUJA Comment:Testing performed by : [address] [address] Blood 07/09/2023 8:21 PM CHISEL GRINDER 07/09/2023 8:28 PM CHISEL GRINDER us Florencia Kimbrough NP LAB BLOOD ORDERABLES Final Resul t HERVE AHUJA [facility] Department [place] [address] * (ABNORMAL) Comprehensive metabolic panel (07/09/2023 8:21 PM CHISEL GRINDER) Sodium 141 135 - 145 mmol/L HERVE AHUJA Comment:Testing performed by : [address] [address] Potassium, pl 4.7 3.3 - 4.9 mmol/L HERVE AHUJA Comment:Testing performed by : [address] [address] Chloride 102 97 - 110 mmol/L HERVE AHUJA Comment:Testing performed by : [address] [address] CO2 27 22 - 32 mmol/L HERVE Comment:Testing performed by : [address] [address] Anion gap 12 2 - 15 mmol/L HERVE AHUJA Comment:Testing performed by : [address] [address] BUN 20 6 - 25 mg/dL HERVE AHUJA Comment:Testing performed by : [address] [address] Creatinine 1.00 0.80 - 1.30 mg/dL HERVE AHUJA Comment:Testing performed by : [address] [address] Glucose 96 70 - 199 mg/dL HERVE Comment: Interpretive Data Fasting glucose >/= 126 mg/dl is diagnostic for diabetes. ?? Fasting is defined as no caloric intake for at least 8 hours. Fasting glucose between 100 mg/dl to 125 mg/dl is diagnostic of prediabetes. In a patient with classic symptoms of hyperglycemia or hyperglycemic crisis, a random glucose >/= 200 mg/dl is diagnostic for diabetes. In the absence of unequivocal hyperglycemia, results should be confirmed by repeat testing. The classification and Diagnosis of Diabetes Diabetes Care 2021; 46: S19-S40. Current interpretive data was last revised 2022. Testing performed by: [address] [address] Calcium 10.3 8.5 - 10.3 mg/dL HERVE Comment:Testing performed by : [address] [address] Bilirubin, total 0.4 0.1 - 1.2 mg/dL HERVE Comment:Testing performed by : [address] [address] Protein, pl 8.9(H) 6.5 - 8.5 g/dL HERVE Comment:Testing performed by : [address] [address] Albumin 5.1(H) 3.5 - 5.0 g/dL HERVE Comment:Testing performed by : [address] [address] Alk phos 139(H) 40 - 130 Units/L HERVE Comment:Testing performed by : [address] [address] ALT 24 7 - 55 Units/L HERVE Comment:Testing performed by : [address] [address] AST 29 10 - 50 Units/L HERVE Comment:Testing performed by : [address] [address] Blood 07/09/2023 8:21 PM CHISEL GRINDER 07/09/2023 8:28 PM CHISEL GRINDER us Florencia Kimbrough DIRECTOR OF MOBILE MARKETING LAB BLOOD ORDERABLES Final Resul t HERVE 0630 [facility] Department [place] [address] * XR Ribs Right W PA Chest 3 or More Views (07/09/2023 7:54 PM CHISEL GRINDER) Anatomical Region Laterality Modality Rib, Chest Right Computed Radiogr aphy 07/09/2023 7:56 PM CHISEL GRINDER Narrative 07/09/2023 7:58 PM CHISEL GRINDER EXAM DESCRIPTION: XR RIBS RIGHT W PA CHEST REASON FOR STUDY: Back pain or radiculopathy, trauma ?? Patient states that today he fell approx 2-3ft from a small ladder and struck his right chest wall. Endorses pain to right ribs. ? TECHNIQUE: Frontal view of the chest and two views of the right ribs COMPARISON: None FINDINGS: The lungs are well inflated. ??Minimal right basilar airspace opacities. ??No pleural effusion. ??No pneumothorax is seen. Heart size and mediastinal contours are normal. Mildly displaced 1 part right 6th, 7th, 8th, 9th rib fractures. IMPRESSION: 1. ?? Mildly displaced right 6th-9th rib fractures. ??No pneumothorax. 2. ?? Minimal right basilar opacities, likely atelectasis. THIS IS AN ELECTRONICALLY VERIFIED FINAL REPORT 07/09/2023 7:58 PM - Electronically signed by ??Jacobo Coronel M.D. AG: AUDRA D: ??07/09/2023 7:58 PM T: ??07/09/2023 7:58 PM Report ID: [id number] Reading Location: ??[id number] Procedure Note Jacobo Coronel MD - 07/09/2023 EXAM DESCRIPTION: XR RIBS RIGHT W PA CHEST REASON FOR STUDY: Back pain or radiculopathy, trauma Patient states that today he fell approx 2-3ft from a small ladder andstruck his right chest wall. Endorses pain to right ribs. TECHNIQUE: Frontal view of the chest and two views of the right ribs COMPARISON: None FINDINGS: The lungs are well inflated. Minimal right basilar airspace opacities. No pleural effusion. No pneumothorax is seen. Heart size and mediastinal contours are normal. Mildly displaced 1 part right 6th, 7th, 8th, 9th rib fractures. IMPRESSION: 1. Mildly displaced right 6th-9th rib fractures. No pneumothorax. 2. Minimal right basilar opacities, likely atelectasis. THIS IS AN ELECTRONICALLY VERIFIED FINAL REPORT 07/09/2023 7:58 PM - Electronically signed by Jacobo Coronel M.D. AG: AUDRA Report ID: [id number] Reading Location: [place] [address] Florencia Kimbrough NP IMG XR PROCEDURES Final Result documented in this encounter Visit Diagnoses Diagnosis Trauma of chest, initial encounter- Primary documented in this encounter Administered Medications Inactive Administered Medications - up to 3 most recent administrations Medication Order MAR Action Action Date Dose Rate Site ioversoL (OPTIRAY 350) syringe 100 mL 100 mL, intravenous, Once in imaging, contrast, Starting on Ruth 07/09/23 at 2053, For 1 dose Contrast Given 07/09/2023 9:05 PM CHISEL GRINDER 100 mL Left Antecubital ketorolac (TORADOL) 30 mg/mL (1 mL) injection 15 mg 15 mg, intravenous, Once, On Ruth 07/09/23 at 2038, For 1 dose, For Adult IV push, administer over 15 seconds Given 07/09/2023 8:40 PM CHISEL GRINDER 15 mg lidocaine (LIDODERM) 5 % patch 1 patch 1 patch, transdermal, Administer over 12 Hours, Daily, First dose on Ruth 07/09/23 at 2038, Do not cover the holes on the top side of the patch., Apply to affected area: back, Indications: painIndications:pain Medication Applied 07/09/2023 8:41 PM CHISEL GRINDER 1 patch Chest documented in this encounter Active and Recently Administered Medications Times are shown in CHISEL GRINDER. Scheduled Medication Order 07/07/2023 07/08/2023 07/09/2023 ketorolac (TORADOL) 30 mg/mL (1 mL) injection 15 mg (COMPLETED) 15 mg, intravenous, Once, On Ruth 07/09/23 at 2038, For 1 dose, For Adult IV push, administer over 15 seconds 2039 (Given - Provid er: Evan Barrera RN) lidocaine (LIDODERM) 5 % patch 1 patch 1 patch, transdermal, Administer over 12 Hours, Daily, First dose on Ruth 07/09/23 at 2038, Do not cover the holes on the top side of the patch., Apply to affected area: back, Indications: pain 2040 (Medication Michael lied - Provider: Evan Barrera RN)2356 (Due: Medication Removed - Provider: Automatic Discharge Provider - Comment: Time automatically adjusted from order being discontinued) morphine injection 4 mg 4 mg, intravenous, Administer over 4 Minutes, Once, On Ruth 07/09/23 at 2036, For 1 dose 2356 (Not Given - Pr ovider: Jane Hutchinson RN - Reason: Patient/family refused) PRN Medication Order 07/07/2023 07/08/2023 07/09/2023 ioversoL (OPTIRAY 350) syringe 100 mL (COMPLETED) 100 mL, intravenous, Once in imaging, contrast, Starting on Ruth 07/09/23 at 2053, For 1 dose 2104 (Contrast Given - Provider: Jael Bowden RT) documented in this encounter Orders Medications Ordered That Juvenal ht Not Have Been Administered Count Last Ordered Date First Ordered Date morphine injection 4 mg 1 07/09/2023 documented in this encounter Care Teams Filter Changing Technician Relationship Specialty Start Date End Date Unknown, Notinfile PCP - General 07/09/23 documented as of this encounter
--- OUTSIDE RECORDS SUMMARY | 2024-08-06 00:36 | XMS_ITS | Encounter Summary ---
Author Organization [facility] Address [address] [place] [address] Care Team Providers Care Counseling Aide Name Role Phone Yasmine Zuniga DO Primary Care Provider [phone] Encounter Details Date Type Department Care Team (Latest Contact Info) Description 03/05/2010 11:24 AM CDT - 03/05/2010 11:59 PM CDT Hospital Encounter [facility] [place] [address] [place] [address] Yasmine Zuniga DO [address] [facility] [address] [place] [address] Discharge Disposition: Home or Self Care Social History Tobacco Use Types Packs/Day Years Used Date Smoking Tobacco: Never Assessed Sex and Gender Information Value Date Recorded Sex Assigned at Not on file Gender Identity Not on file Sexual Orientation Not on file documented as of this encounter Plan of Treatment Not on file documented as of this encounter Procedures Procedure Name Priority Date/Time Associated Diagnosis Comments ECHO PEDIATRIC COMPLETE Routine 03/05/2010 11:57 AM CDT Murmur documented in this encounter Results * ECHO PEDIATRIC COMPLETE (03/05/2010 11:57 AM CDT) 03/06/2010 9:39 PM CDT Narrative [facility] - 03/06/2010 9:39 PM CDT Patient Name: ASHUTOSH WAYNE Chart Number: [id number] Site Location: Date of Appt: Friday, March 05, 2010, 11:30 AM Pediatric Echocardiogram Report Demographics and Visit Data: : 1995. ??Age: 14y/6m/13d. ??BSA (m 2): 1.82. ??Height (cm): 183.01. ?? Weight (kg): 65.8. ??Height Centile: 97.64. ??Weight Centile: 83.38. ?? Person requesting test: [facility], EXTERNAL PROVIDER. ??Computer Bookkeeper: .Patricia Huynh. ?? Reason for test: murmur. ??Procedure Description: Echo Pediatric Complete. ?? Measures: M-Mode: Name ?Value ?Units ?Z-Score ?Min ?Max ?? LV Diastolic Septal ? 0.99 ? cm ? 0.14 ? 0.68 ?? 1.26 ?? Thickness LV Diastolic Dimension ?4.68 ? cm ? -0.97 ?4.31 ?? 5.77 ?? LV Diastolic Wall ? 0.99 ? cm ? 0.65 ? 0.67 ?? 1.15 ?? Thickness LV Systolic Dimension ? 3.08 ? cm ? -0.5 ? 2.56 ?? 3.96 ?? M-Mode Ao Root Diameter ? 2.48 ? cm ? -0.98 ?2.17 ?? 3.4 ?? M-Mode Left Atrial ?2.86 ? cm ? Diameter M-Mode LV Mass ?161.1 ?gm ? -0.2 ? 113.43 247.62 ?? M-Mode LV Mass Index ?88.51 ?g/m 2 ? M-Mode LV Mass / ?31.51 ?g/m ? 19.4 ?? 38.6 ?? Height 2.7 LV Systolic Function: Name ?Value ?Units ?Z-Score ?Min ?Max ?? LV Fractional Shortening ?34.19 ?% ?-0.3 ? 29.1 ?? 42.53 ?? Findings: Veins and Atria: >> Normal Left Atrium >> Normal Right Atrium >> Normal Pulmonary venous connections >> Normal Systemic Veins >> Intact Atrial Septum A-V Canal: >> Normal Tricuspid Valve - trivial tricuspid insufficiency. >> Normal Mitral Valve Ventricles: >> Normal Right Ventricle - estimated right ventricular pressure 15 mmHg plus right atrium pressure. >> Normal Left Ventricle - with normal systolic function. >> Intact Ventricular Septum Conotruncus: >> Normal Pulmonary Valve >> Normal Aortic Valve Great Arteries: >> Normal Pulmonary Artery - with normal branch pulmonary arteries. >> Normal Coronary Artery - left origin seen, with color. - right origin seen, with color. >> Normal Aortic Arch Summary: Indication: Heart murmur. Impression: 1) Physiologic tricuspid insufficiency. 2) Normal echocardiogram. - Complete 2D echocardiogram with M-mode, Color Flow Doppler and Pulsed Wave/Continuous Wave Doppler performed. Eads's Name: Demetrius Lobato MD Date/time of reading: Mar 06 2010 - 9:39:38 PM Report created at 9:39:42 PM on Thursday, March 06, 2010 Procedure Note Demetrius Lobato MD - 03/06/2010 Patient Name: ASHUTOSH WAYNE Chart Number: [id number] Site Location: Date of Appt: Friday, March 05, 2010, 11:30 AM Pediatric Echocardiogram Report Demographics and Visit Data: : 1995. Age: 14y/6m/13d. BSA (m 2): 1.82. Height (cm): 183.01. Weight (kg): 65.8. Height Centile: 97.64. Weight Centile: 83.38. Person requesting test: [facility], EXTERNAL PROVIDER. Computer Bookkeeper: Patricia Hong. Reason for test: murmur. Procedure Description: Echo Pediatric Complete. Measures: M-Mode: Name Value Units Z-Score Min Max LV Diastolic Septal 0.99 cm 0.14 0.68 1.26 Thickness LV Diastolic Dimension 4.68 cm -0.97 4.31 5.77 LV Diastolic Wall 0.99 cm 0.65 0.67 1.15 Thickness LV Systolic Dimension 3.08 cm -0.5 2.56 3.96 M-Mode Ao Root Diameter 2.48 cm -0.98 2.17 3.4 M-Mode Left Atrial 2.86 cm Diameter M-Mode LV Mass 161.1 gm -0.2 113.43 247.62 M-Mode LV Mass Index 88.51 g/m 2 M-Mode LV Mass / 31.51 g/m 19.4 38.6 Height 2.7 LV Systolic Function: Name Value Units Z-Score Min Max LV Fractional Shortening 34.19 % -0.3 29.1 42.53 Findings: Veins and Atria: >> Normal Left Atrium >> Normal Right Atrium >> Normal Pulmonary venous connections >> Normal Systemic Veins >> Intact Atrial Septum A-V Canal: >> Normal Tricuspid Valve - trivial tricuspid insufficiency. >> Normal Mitral Valve Ventricles: >> Normal Right Ventricle - estimated right ventricular pressure 15 mmHg plus right atriumpressure. >> Normal Left Ventricle - with normal systolic function. >> Intact Ventricular Septum Conotruncus: >> Normal Pulmonary Valve >> Normal Aortic Valve Great Arteries: >> Normal Pulmonary Artery - with normal branch pulmonary arteries. >> Normal Coronary Artery - left origin seen, with color. - right origin seen, with color. >> Normal Aortic Arch Summary: Indication: Heart murmur. Impression: 1) Physiologic tricuspid insufficiency. 2) Normal echocardiogram. - Complete 2D echocardiogram with M-mode, Color Flow Doppler and Pulsed Wave/Continuous Wave Doppler performed. Eads's Name: Demetrius Lobato MD Date/time of reading: Mar 06 2010 - 9:39:38 PM Report created at 9:39:42 PM on Saturday, March 06, 2010 External Provider [facility] ORDERABLES Performing Organization Address City/State/[facility] Co de Phone Number [facility] CLIA# [id number] [address] [place] [address] documented in this encounter Visit Diagnoses Diagnosis Murmur Undiagnosed cardiac murmurs documented in this encounter Care Teams Counseling Aide Relationship Specialty Start Date End Date Yasmine Zuniga DO [address] [place] [address] [address] [place] [phone] PCP - General Family Practice 03/05/10 documented as of this encounter
--- OUTSIDE RECORDS SUMMARY | 2024-08-06 06:05 | XMS_ITS | Encounter Summary ---
Author Organization [facility] Address [address] [place] [address]. [place] [address] [place] [address] Care Team Providers Care Excavator Backhoe Operator Name Role Phone Ant Zuniga DO Primary Care Provider Reason for Visit * Reason Comments Anxiety follow up Encounter Details Date Type Department Care Team (Late st Contact Info) Description 03/29/2020 2:45 PM CDT Office Visit [facility] [address] [facility] [address] [place] [address] Ant Zuniga DO [address] [place] [address] Anxiety (follow up) Social History [...] Job Start Date Job End Date works [employer] Not on file Not on file Not [...] file Gets together: Not on file Attends adventism service: Not on file Active member of [...] unspecified documented in this encounter Care Teams Excavator Backhoe Operator Relationship Specialty Start Date End Date Ant Zuniga DO [address] [place] [address] PCP - General FAMILY PRACTICE 10/04/19 documented as of this encounter
--- OUTSIDE RECORDS SUMMARY | 2024-08-06 06:05 | XMS_ITS | Encounter Summary ---
Author Organization [facility] Address [address] [place] [address]. 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) Social History Tobacco Use Types Packs/Day [...] Comments Blood Pressure 164/84 10/06/2019 9:16 AM MAINFRAME PROGRAMMER Pulse - - Temperature - - Respiratory Rate - - Oxygen Saturation - - Inhaled Oxygen Concentration - - Weight 85.7 kg (189 lb) 10/06/2019 9:16 AM MAINFRAME PROGRAMMER Height 182.9 cm (6') 10/06/2019 9:16 AM MAINFRAME PROGRAMMER Body Mass Index 25.63 10/06/2019 9:16 AM MAINFRAME PROGRAMMER documented in this encounter Progress Notes * Libia Bernal NP - 10/06/2019 9:15 AM CST Reason for Visit: 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) History of Present Illness: Nervous and [...] file Gets together: Not on file Attends congregation service: Not on file Active member of [...] Solis Tam MD at 10/07/2019 6:52 PM MAINFRAME PROGRAMMER FRAME PROGRAMMER FRAME PROGRAMMER documented in this encounter Plan of Treatment Not on file documented as of this encounter Visit Diagnoses Diagnosis Anxiety- Primary Anxiety state, unspecified documented in this encounter Care Teams Rack Production Worker Relationship Specialty Start Date End Date Ant Lopez DO [address] [place] [address] PCP - General FAMILY PRACTICE 10/04/19 documented as of this encounter
--- OUTSIDE RECORDS SUMMARY | 2024-08-06 06:05 | XMS_ITS | Encounter Summary ---
Author Organization [facility] Address [facility] [place] [address] [place] [address] Care Team Providers Care Engineering Professionals Name Role Phone Unavailable Primary Care Provider Unavailabl e Encounter Details Date Type Department Care Team (Latest Contact Info) Description 11/24/2016 Abstract [facility] Medical [facility] Isi Marina PA-C [address] [place] [address] Social History Tobacco Use Types Packs/Day Years [...] hypertension (V17.49) (Z82.49) Immunizations DTP/DTaP --- Series1: 51Oog1164 (2M); Series2: 70Hqp8234 (4M); Series3: 30Tmn7851 (7M); Series4: 03Tak9158 (19M); Series5: 49Zbr5381 (5Y) Hepatitis B --- Series1: 66Iin0620 (1D); Series2: 95Mdg0265 (36D); Series3: 62Wks9865 (9M) HIB --- Series1: 95Blt2756 (2M); Series2: 92Ggu9303 (4M); Series3: 12Ecq3397 (7M); Series4: 07Duq0878 (19M) MMR --- Series1: 59Sad3886 (12M); Series2: 42Fhq1630 (5Y) Polio --- Series1: 81Bdw8379 (2M); Series2: 75Apf4330 (4M); Series3: 65Yrx2607 (7M); Series4: 05Ezw4188 (5Y) Tdap --- Series1: 93Rfz6515 (14Y) Varicella --- Series1: 71Isp7123 (12M); Series2: 77Cak1570 (14Y) Current Meds 1. No Reported Medications [...] Isi Marina PA-C; Nov 24 2016 12:42PM DOCKMASTER (Author) Electronically signed by : Solis Vides M.D.; Nov 24 2016 1:00PM DOCKMASTER documented in this encounter Plan of Treatment Not on file documented as of this encounter Visit Diagnoses Not on filedocumented in this encounter
--- OUTSIDE RECORDS SUMMARY | 2024-08-06 06:05 | XMS_ITS | Encounter Summary ---
Author Organization [facility] Address [address] [place] [address]. [place] [address] [place] [address] Care Team Providers Care Director Women Name Role Phone Unavailable Primary Care Provider Unavailabl e Encounter Details Date Type Department Care Team (Latest Contact Info) Description 09/27/2018 Abstract [facility] Yasmine Zuniga, DO [address] [place] [address] Social History Tobacco Use Types Packs/Day Years [...]
--- OUTSIDE RECORDS SUMMARY | 2024-08-06 06:05 | XMS_ITS | Encounter Summary ---
Author Organization [facility] Address [address] [place] [address]. [place], [place] [address] [place] [address] Care Team Providers Care Laborer Cheesemaking Name Role Phone Unavailable Primary Care Provider Unavailabl e Encounter Details Date Type Department Care Team (Latest Contact Info) Description 09/28/2018 Abstract [facility] Yasmine Zuniga, DO [address] [place] [address] Social History Tobacco Use Types Packs/Day Years [...]
--- OUTSIDE RECORDS SUMMARY | 2024-08-06 06:05 | XMS_ITS | Encounter Summary ---
Author Organization [facility] Address [address] [place] [address]. [place], [place] [address] [place] [address] Care Team Providers Care Production Ski Repairer Name Role Phone Yasmine Zuniga DO Primary Care Provider [phone] Reason for Visit * Reason Onset Date Comments Question 07/17/2023 Encounter Details Date Type Department Care Team (Late st Contact Info) Description 07/17/2023 Telephone [facility] [address] [facility] [address] [place] [address] Yasmine Zuniga DO [address] [place] [address] Question Social History Tobacco Use [...] AT THIS TIME. NO RESPONSE FROM PATIENT MOTIVE PARTS SALESPERSON * Jackie Jensen - 08/10/2023 9:44 AM CST Letter mailed MOTIVE PARTS SALESPERSON * Jackie Jensen - 08/05/2023 11:52 AM CST lmom MOTIVE PARTS SALESPERSON * Jackie Jensen - 07/24/2023 8:57 AM CST lmom MOTIVE PARTS SALESPERSON * Jackie Jensen - 07/20/2023 2:44 PM CST lmom MOTIVE PARTS SALESPERSON * Yasmine Zuniga DO - 07/17/2023 4:12 PM CST Nodules are graded according to a system and as it says, no further w/u needed because does not meet criteria Concern should be that he is a smoker and should stop that now MOTIVE PARTS SALESPERSON * Jackie Jensen - 07/17/2023 3:35 PM CST Dad calling for patient regarding a CT that he had done at [facility] on 07/10. It showed 6 mm pleural left lower lobe nodule (104) Patients dad is concerned regarding this finding and is asking if anything needs to be done or if they should be concerned? NCB: pt or mom DAD is not on HIPAA MOTIVE PARTS SALESPERSON documented in this encounter Plan of Treatment Not on file documented as of this encounter Visit Diagnoses Not on filedocumented in this encounter Care Teams Production Ski Repairer Relationship Specialty Start Date End Date Yasmine Zuniga DO [address] [place] [address] PCP - General FAMILY PRACTICE 10/04/19 documented as of this encounter
--- OUTSIDE RECORDS SUMMARY | 2024-08-06 06:05 | XMS_ITS | Encounter Summary ---
Author Organization [facility] Address [address] [place] [address]. [place], [place] [address] [place] [address] Care Team Providers Care Elevator Repairer Name Role Phone Yasmine Zuniga DO [...] on filedocumented in this encounter Care Teams Elevator Repairer Relationship Specialty Start Date End Date Yasmine Zuniga DO [address] [place] [address] PCP - General FAMILY PRACTICE 10/04/19 documented as of this encounter
--- OUTSIDE RECORDS SUMMARY | 2024-08-06 06:05 | XMS_ITS | Encounter Summary ---
Author Organization [facility] Address [address] [facility] [place] [address] [place] [address] Care Team Providers Care Clinical Education Academic Coordinator Name Role Phone Unavailable Primary Care Provider Unavailabl e Encounter Details Date Type Department Care Team (Latest Contact Info) Description 01/02/2016 Abstract [facility] Medical Group Isi Marina PA-C [address] [place] [address] Social History Tobacco Use Types Packs/Day Years [...] Isi Marina PA-C; Jan 02 2016 2:03PM MIDDLEWARE SYSTEMS ARCHITECT (Author) Electronically signed by : Solis Vides M.D.; Jan 02 2016 2:29PM MIDDLEWARE SYSTEMS ARCHITECT documented in this encounter Plan of Treatment Not on file documented as of this encounter Visit Diagnoses Not on filedocumented in this encounter
--- OUTSIDE RECORDS SUMMARY | 2024-08-06 06:05 | XMS_ITS | Encounter Summary ---
Author Organization [facility] Address [address] [place] [address]. [place] [address] [place] [address] Care Team Providers Care Sericulture Teacher Name Role Phone Ant Zuniga DO Primary Care Provider Reason for Visit * Reason Comments Physical EPPE Encounter Details Date Type Department Care Team (Late st Contact Info) Description 02/23/2020 4:00 PM CDT Office Visit [facility] [address] [place] [phone] Ant Zuniga DO [address] [place] [address] Physical (EPPE) Social History Tobacco [...] Job Start Date Job End Date works [employer] Not on file Not on file Not [...] Not on file Occupational History ??? Occupation: [employer] Social History Narrative Has 2 sons with [...] facility documented in this encounter Care Teams Sericulture Teacher Relationship Specialty Start Date End Date Ant Zuniga DO [address] [place] [address] PCP - General FAMILY PRACTICE 10/04/19 documented as of this encounter
--- OUTSIDE RECORDS SUMMARY | 2024-08-06 06:05 | XMS_ITS | Encounter Summary ---
Author Organization [facility] Address [address] [place] [address]. [place], [place] [address] [place] [address] Care Team Providers Care Carriage Rider Name Role Phone Yasmine Zuniga DO Primary Care Provider [phone] Encounter Details Date Type Department Care Team [...] Job Start Date Job End Date works [employer] Not on file Not on file [...] on filedocumented in this encounter Care Teams Carriage Rider Relationship Specialty Start Date End Date Yasmine Zuniga DO [address] [place] [address] PCP - General FAMILY PRACTICE 10/04/19 documented as of this encounter
--- OUTSIDE RECORDS SUMMARY | 2024-08-06 06:05 | XMS_ITS | Encounter Summary ---
Author Organization [facility] Address [facility] [place] [address] [place] [address] Care Team Providers Care Ground Hand Name Role Phone Unavailable Primary Care Provider Unavailabl e Encounter Details Date Type Department Care Team (Latest Contact Info) Description 10/20/2018 Abstract [facility] Medical Group Efrain Yasmine S, DO [address] [place], [place] [address] Social History Tobacco Use Types Packs/Day Years [...] Jessica Bell, ; Oct 20 2018 4:21PM PASSENGER BOOKING CLERK (Author) documented in this encounter Plan of Treatment Not on file documented as of this encounter Visit Diagnoses Not on filedocumented in this encounter
--- OUTSIDE RECORDS SUMMARY | 2024-08-06 06:05 | XMS_ITS | Encounter Summary ---
Author Organization [facility] Address [address] [place] [address]. [place], [place] [address] [place] [address] Care Team Providers Care Bush And Vine Farmer Fruit Crops Name Role Phone Yasmine Zuniga DO Primary Care Provider [phone] Encounter Details Date Type Department Care Team [...] Job Start Date Job End Date works [employer] Not on file Not on file [...] on filedocumented in this encounter Care Teams Bush And Vine Farmer Fruit Crops Relationship Specialty Start Date End Date Yasmine Zuniga DO [address] [place] [address] PCP - General FAMILY PRACTICE 10/04/19 documented as of this encounter
--- OUTSIDE RECORDS SUMMARY | 2024-08-06 06:05 | XMS_ITS | Encounter Summary ---
Author Organization [facility] Address [address] [place] [address]. [place], [place] [address] [place] [address] Care Team Providers Care Quality Assurance Specialist Name Role Phone Unavailable Primary Care Provider Unavailabl e Encounter Details Date Type Department Care Team (Late st Contact Info) Description 04/24/[address] [facility] Diagnostic Imaging [address] [place] [address] , Angelo Apodaca MD Social History Tobacco [...]
--- OUTSIDE RECORDS SUMMARY | 2024-08-06 06:05 | XMS_ITS | Encounter Summary ---
Author Organization [facility] Address [address] [place] [address]. [place], [place] [address] [place] [address] Care Team Providers Care Peoplesoft Fscm Developer Name Role Phone Yasmine Zuniga DO [...] Job Start Date Job End Date works [email or web address] Not on file Not on file Not o n file COVID-19 Exposure Response Date Recorded In the last month, have you been in contact with someone who was confirmed or suspected to have Coronavirus / COVID-19? No / Unsure 09/20/2020 9:03 AM AGRICULTURAL AND FORESTRY SUPERVISOR documented as of this encounter Plan of Treatment Not on file documented as of this encounter Visit Diagnoses Not on filedocumented in this encounter Care Teams Peoplesoft Fscm Developer Relationship Specialty Start Date End Date Yasmine Zuniga DO [address] [place] [address] PCP - General FAMILY PRACTICE 10/04/19 documented as of this encounter
--- OUTSIDE RECORDS SUMMARY | 2024-08-06 06:05 | XMS_ITS | Clinical Summary ---
Author Organization [facility] Address [facility] [facility]. [place], [place] [address] [place] [address] Care Team Providers Care Trailhead Maintenance Worker Name Role Phone EfrainYasmine Primary Care Provider [phone] Allergies No known active allergies Medications HYDROcodone-venkat [...] Need for prophylactic vaccin ation with combined bwgtxylcdo-jgzmmrw-bicnqjabc (DTP) vaccine 09/20/2020 09/24/2020 Encounter for preventive [...] Job Start Date Job End Date works [employer] Not on file Not on file Not o n file Last Filed Vital Signs Vital Sign Reading Time Taken Comments Blood Pressure 154/88 07/10/2023 2:36 PM CALENDAR CONTROL CLERK BLOOD BANK Pulse - - Temperature - - Respiratory Rate - - Oxygen Saturation 97% 07/10/2023 2:36 PM CALENDAR CONTROL CLERK BLOOD BANK Inhaled Oxygen Concentration - - Weight 81.2 kg (179 lb) 07/10/2023 2:36 PM CALENDAR CONTROL CLERK BLOOD BANK Height 180.3 cm (5' 11 ) 03/29/2020 [...] patient's age to complete this topic Insurance [facility] Care Teams Trailhead Maintenance Worker Relationship Specialty Start Date End Date Yasmine Zuniga DO [address] [place] [address] PCP - General FAMILY PRACTICE 10/04/19
--- OUTSIDE RECORDS SUMMARY | 2024-08-06 06:05 | XMS_ITS | Encounter Summary ---
Author Organization [facility] Address [address] [place] [address]. [place], [place] [address] [place] [address] Care Team Providers Care Bias Cutter Name Role Phone Ant Zuniga DO Primary Care Provider [phone] Reason for Referral * Psychiatric (Routine) - Closed Specialty Diagnoses / Procedures Referred By Olvin t Referred To Contact Psychiatry Diagnoses Insomnia, unspecified type Anxiety Ant Zuniga DO [address] [place] [address] Phone: tel: fax: Referral ID Status Reason Start Date Expiration Date V isits Requested Visits Authorized [id number] Closed Specialty Services 09/20/2020 10/21/2021 1 1 CIATE PROFESSOR OF MANAGEMENT Reason for Visit * Reason Comments Acute Note discuss anxiety/depr ession Encounter Details Date Type Department Care Team (Late st Contact Info) Description 09/20/2020 9:15 AM ASSOCIATE PROFESSOR OF MANAGEMENT Office Visit [facility] [address] [place] [phone] Ant Zuniga DO [address] [place] [address] Acute Note (discuss anxiety/depression) Social History Tobacco [...] Job Start Date Job End Date works [employer] Not on file Not on file Not o n file COVID-19 Exposure Response Date Recorded In the last month, have you been in contact with someone who was confirmed or suspected to have Coronavirus / COVID-19? No / Unsure 09/20/2020 9:03 AM ASSOCIATE PROFESSOR OF MANAGEMENT documented as of this encounter Last Filed Vital Signs Vital Sign Reading Time Taken Comments Blood Pressure 132/70 09/20/2020 9:04 AM ASSOCIATE PROFESSOR OF MANAGEMENT Pulse - - Temperature - - Respiratory Rate - - Oxygen Saturation - - Inhaled Oxygen Concentration - - Weight 80.3 kg (177 lb) 09/20/2020 9:04 AM ASSOCIATE PROFESSOR OF MANAGEMENT Height - - Body Mass Index 24.69 [...] Not on file Occupational History ??? Occupation: [email or web address] Social Needs ??? Financial resource strain: Not [...] file Gets together: Not on file Attends denominational service: Not on file Active member of [...] 2. Need for prophylactic vaccination with combined gxyobistmd-ewofpbg-nuuzbnulk (DTP) vaccine [95810] Tdap, Tetanus, diphtheria toxoids and acellular pertussis [...] ??? Ambulatory Referral to Psychiatry ? ? [11747] Tdap, Tetanus, diphtheria toxoids and acellular pertussis vaccine, >7yrs, IM Use ??? traZODone 50 MG tablet ANT ZUNIGA DO Referring Provider: No ref. provider found PCP: ANT ZUNIGA DO CIATE PROFESSOR OF MANAGEMENT documented in this encounter Plan of Treatment Scheduled Referrals Name Type Priority Associated Diagnoses Orde r Schedule Ambulatory Referral to Psychiatry Referral Routine Insomnia, unspecified type Anxiety Ordered: 09/20/2020 documented as of this encounter Results * (ABNORMAL) COMPREHENSIVE METABOLIC PANEL (09/20/2020 9:44 AM ASSOCIATE PROFESSOR OF MANAGEMENT) [facility] GLUCOSE 76 65 - 99 mg/dL [facility] Comment: ? Fasting reference interval BUN 12 7 - 25 mg/dL [facility] CREATININE S/P/B 0.97 0.60 - 1.35 mg/dL [facility] EGFR NON-AFR. AMER. 108 > OR = 60 mL/min/1. 73m2 [facility] EGFR AFR. AMER. 125 > OR = 60 mL/min/1. 73m2 [facility] BUN CREATININE RATIO NOT APPLICABLE 6 - 22 (calc) [facility] SODIUM S/P/B 139 135 - 146 mmol/L [facility] POTASSIUM S/P/B 3.7 3.5 - 5.3 mmol/L [facility] CHLORIDE S/P/B 99 98 - 110 mmol/L [facility] CO2 25 20 - 32 mmol/L [facility] CALCIUM S/P/B 9.8 8.6 - 10.3 mg/dL [facility] TOTAL PROTEIN S/P/B 7.2 6.1 - 8.1 g/dL [facility] ALBUMIN S/P/B 5.0 3.6 - 5.1 g/dL [facility] GLOBULIN 2.2 1.9 - 3.7 g/dL (calc) [facility] ALBUMIN/GLOBULI N RATIO 2.3 1.0 - 2.5 (calc) [facility] BILIRUBIN TOTAL S/P/B 1.8(H) 0.2 - 1.2 mg/dL [facility] ALKALINE PHOSPHATASE S/P/B 103 36 - 130 U/L [facility] AST 41(H) 10 - 40 U/L [facility] ALT 22 9 - 46 U/L [facility] 09/20/2020 9:44 AM ASSOCIATE PROFESSOR OF MANAGEMENT 09/21/2020 7:19 AM ASSOCIATE PROFESSOR OF MANAGEMENT Narrative [facility] - 09/21/2020 2:12 PM ASSOCIATE PROFESSOR OF MANAGEMENT FASTING: YES us Ant Zuniga DO LABORATORY Final Result [facility] [address] [address] [address] * THYROXINE, FREE (FT4) (09/20/2020 9:44 AM ASSOCIATE PROFESSOR OF MANAGEMENT) FREE T4 1.2 0.8 - 1.8 ng/dL [facility] 09/20/2020 9:44 AM ASSOCIATE PROFESSOR OF MANAGEMENT 09/21/2020 7:19 AM ASSOCIATE PROFESSOR OF MANAGEMENT Narrative [facility] - 09/21/2020 2:12 PM ASSOCIATE PROFESSOR OF MANAGEMENT FASTING: YES Ant Zuniga DO LABORATORY Final Result Performing Organization Address [facility] Co de Phone Number [facility] [address] [place] [address] * THYROID STIM HORMONE, TSH (09/20/2020 9:44 AM ASSOCIATE PROFESSOR OF MANAGEMENT) TSH 0.58 0.40 - 4.50 mIU/L [facility] 09/20/2020 9:44 AM ASSOCIATE PROFESSOR OF MANAGEMENT 09/21/2020 7:19 AM ASSOCIATE PROFESSOR OF MANAGEMENT Narrative [facility] - 09/21/2020 2:12 PM ASSOCIATE PROFESSOR OF MANAGEMENT FASTING: YES Ant Zuniga DO LABORATORY Final Result Performing Organization Address [facility] de Phone Number [facility] [address] [place] [address] documented in this encounter Visit Diagnoses Diagnosis Insomnia, unspecified type- Primary Need for prophylactic vaccination with combined zznxwkgfkr-wxjmspy-jjuausisb (DTP) vaccine Weight loss Loss of weight Anxiety Anxiety state, unspecified Mood swings Other specified episodic mood disorder Weight loss Loss of weight Anxiety Anxiety state, unspecified documented in this encounter Care Teams Bias Cutter Relationship Specialty Start Date End Date Ant Zuniga DO [facility] [address] [place] [address] PCP - General FAMILY PRACTICE 10/04/19 documented as of this encounter
--- OUTSIDE RECORDS SUMMARY | 2024-08-06 06:05 | XMS_ITS | Encounter Summary ---
Author Organization [facility] Address [address] [facility] [place], [place] [address] [place] [address] Care Team Providers Care Hotel Maintenance Technician Name Role Phone Unavailable Primary Care Provider Unavailabl e Encounter Details Date Type Department Care Team (Late st Contact Info) Description 04/04/[address] [facility] [address] [place], [place] [id number] Diomedes Mccabe MD [address] [address] Social History Tobacco Use Types [...]
--- OUTSIDE RECORDS SUMMARY | 2024-08-06 06:05 | XMS_ITS | Encounter Summary ---
Author Organization [facility] Address [facility] [facility]. [place], [place] [address] [place] [address] Care Team Providers Care Pallet Sorter Name Role Phone Unavailable Primary Care Provider Unavailabl e Encounter Details Date Type Department Care Team (Late st Contact Info) Description 03/16/2003 Abstract [facility] Card[facility] EKG [address] [place] [address] Yasmine Zuniga S, DO [address] [place] [address] Social History Tobacco Use Types Packs/Day Years [...]
--- OUTSIDE RECORDS SUMMARY | 2024-08-06 06:05 | XMS_ITS | Encounter Summary ---
Author Organization [facility] Address [address] [place] [address]. [place], [place] [address] [place] [address] Care Team Providers Care Rotating Field Assembler Name Role Phone Ant Zuniga DO Primary Care Provider Reason for Visit * Reason Comments Follow Up [facility] Encounter Details Date Type Department Care Team (Late st Contact Info) Description 07/10/2023 2:45 PM METAL SOLDERER Office Visit [facility] [address] [facility] [address] [place] [phone] Ant Zuniga DO [address] [place] [address] Follow Up ([facility]) Social History Tobacco Use Types Packs/Day [...] Job Start Date Job End Date works for; to (do) Not on file Not on file Not o n file documented as of this encounter Last Filed Vital Signs Vital Sign Reading Time Taken Comments Blood Pressure 154/88 07/10/2023 2:36 PM METAL SOLDERER Pulse - - Temperature - - Respiratory Rate - - Oxygen Saturation 97% 07/10/2023 2:36 PM METAL SOLDERER Inhaled Oxygen Concentration - - Weight 81.2 kg (179 lb) 07/10/2023 2:36 PM METAL SOLDERER Height - - Body Mass Index 24.97 03/29/2020 2:34 PM CDT documented in this encounter Progress Notes * Ant Zuniga, DO - 07/10/2023 2:45 PM CST Reason for Visit: Follow Up ([facility]) History of Present Illness: Here for [...] of children: 2 Occupational History Occupation: works for; to (do) Tobacco Use Smoking status: Every Day Tobacco [...] (NORCO) 5-325 MG tablet Recommendations and Plan: Commerce Aleve prn No strenuous activity Off work for at least a week If starts with cough, fever, sob get eval immediately Declines flu shot Don't smoke Orders Placed This Encounter HYDROcodone-acetaminophen (NORCO) 5-325 MG tablet No LOS data to display ANT ZUNIGA DO Referring Provider: No ref. provider found PCP: ANT ZUNIGA DO L SOLDERER documented in this encounter Plan of Treatment Not on file documented as of this encounter Visit Diagnoses Diagnosis Closed fracture of multiple ribs of right side, initial encounter- Primary documented in this encounter Care Teams Rotating Field Assembler Relationship Specialty Start Date End Date Ant Zuniga DO [address] [place] [address] PCP - General FAMILY PRACTICE 10/04/19 documented as of this encounter
--- OUTSIDE RECORDS SUMMARY | 2024-08-06 06:05 | XMS_ITS | Encounter Summary ---
Author Organization [facility] Address [address] [place] [address]. [place], [place] [address] [place] [address] Care Team Providers Care Chief Operator Name Role Phone Yasmine Zuniga DO Primary Care Provider [phone] Reason for Visit * Reason Onset Date Comments Information 10/31/2019 Encounter Details Date Type Department Care Team (Late st Contact Info) Description 10/31/2019 Telephone [facility] [address] [facility] [address] [place] [address] Yasmine Zuniga DO [address] [place] [address] Information Social History Tobacco Use [...] on filedocumented in this encounter Care Teams Chief Operator Relationship Specialty Start Date End Date Yasmine Zuniga DO [address] [place] [address] PCP - General FAMILY PRACTICE 10/04/19 documented as of this encounter
--- OUTSIDE RECORDS SUMMARY | 2024-08-06 06:05 | XMS_ITS | Encounter Summary ---
Author Organization [facility] Address [address] [place] [address]. [place], [place] [address] [place] [address] Care Team Providers Care Penetration Tester Name Role Phone EfrainYasmine Primary Care Provider [phone] Encounter Details Date Type Department Care Team ([facility] st Contact Info) Description 09/20/2020 9:35 AM METALLURGICAL SPECIALIST Laboratory Only [facility] [address] [facility] [address] [place] [address] Social History Tobacco Use Types [...] COVID-19? No / Unsure 09/20/2020 9:03 AM METALLURGICAL SPECIALIST documented as of this encounter Plan of Treatment Not on file documented as of this encounter Procedures Procedure Name Priority Date/Time Associated Diagnosis Comments COMPREHENSIVE METABOLIC PANEL Routine 09/20/2020 9:44 AM METALLURGICAL SPECIALIST Weight loss Anxiety THYROXINE, FREE (FT4) Routine 09/20/2020 9:44 AM METALLURGICAL SPECIALIST Weight loss Anxiety THYROID STIM HORMONE TSH Routine 09/20/2020 9:44 AM METALLURGICAL SPECIALIST Weight loss Anxiety COLLECTION VENOUS BLOOD VENIPUNCTURE Routine 09/20/2020 9:41 AM METALLURGICAL SPECIALIST Weight loss Anxiety documented in this encounter Results * THYROID STIM HORMONE, TSH (09/20/2020 9:44 AM METALLURGICAL SPECIALIST) TSH 0.58 0.40 - 4.50 mIU/L [facility] 09/20/2020 9:44 AM METALLURGICAL SPECIALIST 09/21/2020 7:19 AM METALLURGICAL SPECIALIST Narrative [facility] - 09/21/2020 2:12 PM METALLURGICAL SPECIALIST FASTING: YES Yasmine Zuniga DO LABORATORY Final Result Performing Organization Address [facility] Co de Phone Number [facility] [address] [place] [address] * THYROXINE, FREE (FT4) (09/20/2020 9:44 AM METALLURGICAL SPECIALIST) FREE T4 1.2 0.8 - 1.8 ng/dL [facility] 09/20/2020 9:44 AM METALLURGICAL SPECIALIST 09/21/2020 7:19 AM METALLURGICAL SPECIALIST Narrative [facility] - 09/21/2020 2:12 PM METALLURGICAL SPECIALIST FASTING: YES us Yasmine Zuniga DO LABORATORY Final Result Performing Organization Address [facility] Co de Phone Number [facility] [address] [place] [address] * (ABNORMAL) COMPREHENSIVE METABOLIC PANEL (09/20/2020 9:44 AM METALLURGICAL SPECIALIST) GLUCOSE 76 65 - 99 mg/dL [facility] Comment: ? Fasting reference interval BUN 12 7 - 25 mg/dL [facility] CREATININE S/P/B 0.97 0.60 - 1.35 mg/dL [facility] EGFR NON-AFR. AMER. 108 > OR = 60 mL/min/1. 73m2 [facility] EGFR AFR. AMER. 125 > OR = 60 mL/min/1. 73m2 [facility] BUN CREATININE RATIO NOT APPLICABLE 6 - 22 (calc) [facility] SODIUM S/P/B 139 135 - 146 mmol/L [facility] POTASSIUM S/P/B 3.7 3.5 - 5.3 mmol/L [facility] CHLORIDE S/P/B 99 98 - 110 mmol/L [facility] CO2 25 20 - 32 mmol/L [facility] CALCIUM S/P/B 9.8 8.6 - 10.3 mg/dL [facility] TOTAL PROTEIN S/P/B 7.2 6.1 - 8.1 g/dL [facility] ALBUMIN S/P/B 5.0 3.6 - 5.1 g/dL [facility] GLOBULIN 2.2 1.9 - 3.7 g/dL (calc) [facility] ALBUMIN/GLOBULI N RATIO 2.3 1.0 - 2.5 (calc) [facility] BILIRUBIN TOTAL S/P/B 1.8(H) 0.2 - 1.2 mg/dL [facility] ALKALINE PHOSPHATASE S/P/B 103 36 - 130 U/L [facility] AST 41(H) 10 - 40 U/L [facility] ALT 22 9 - 46 U/L [facility] 09/20/2020 9:44 AM METALLURGICAL SPECIALIST 09/21/2020 7:19 AM METALLURGICAL SPECIALIST Narrative [facility] - 09/21/2020 2:12 PM METALLURGICAL SPECIALIST FASTING: YES us Yasmine Zuniga DO LABORATORY Final Result [facility] [address] [address] [address] documented in this encounter Visit Diagnoses Diagnosis Weight loss Loss of weight Anxiety Anxiety state, unspecified documented in this encounter Care Teams Penetration Tester Relationship Specialty Start Date End Date Yasmine Zuniga DO [address] [place] [address] PCP - General FAMILY PRACTICE 10/04/19 documented as of this encounter
--- OUTSIDE RECORDS SUMMARY | 2024-08-06 06:06 | XMS_ITS | Encounter Summary ---
Author Organization [facility] Address [address] [place] [address] Care Team Providers Care Servicing Manager Name Role Phone Yasmine Zuniga DO Primary Care Provider [phone] Encounter Details Date Type Department Care Team (Latest Contact Info) Description 03/05/2010 11:24 AM CDT - 03/05/2010 11:59 PM CDT Hospital Encounter [facility] [address] [place] [address] Yasmine Zuniga DO [address] [facility] [address] [place] [address] Discharge Disposition: Home or Self [...] AM CDT) 03/06/2010 9:39 PM CDT Narrative [facility] - 03/06/2010 9:39 PM CDT Patient Name: ASHUTOSH WAYNE Chart Number: [id number] Site Location: Date of Appt: Friday, March 05, 2010, 11:30 AM Pediatric Echocardiogram Report Demographics and Visit Data: : 1995. ??Age: 14y/6m/13d. ??BSA (m 2): 1.82. ??Height (cm): 183.01. ?? Weight (kg): 65.8. ??Height Centile: 97.64. ??Weight Centile: 83.38. ?? Person requesting test: [facility], EXTERNAL PROVIDER. ??Industrial Furnace Fabricator: .Patricia Huynh. ?? Reason for test: murmur. [...] Doppler and Pulsed Wave/Continuous Wave Doppler performed. [place]'s Name: Demetrius Lobato MD Date/time of reading: Mar 06 2010 - 9:39:38 PM Report created at 9:39:42 PM on Thursday, March 06, 2010 Procedure Note Demetrius Lobato MD - 03/06/2010 Patient Name: ASHUTOSH WAYNE Chart Number: [id number] Site Location: Date of Appt: Friday, March 05, 2010, 11:30 AM Pediatric Echocardiogram Report Demographics and Visit Data: : 1995. Age: 14y/6m/13d. BSA (m 2): 1.82. Height (cm): 183.01. Weight (kg): 65.8. Height Centile: 97.64. Weight Centile: 83.38. Person requesting test: [facility], EXTERNAL PROVIDER. Industrial Furnace Fabricator: Patricia Hong. Reason for test: murmur. Procedure [...] Doppler and Pulsed Wave/Continuous Wave Doppler performed. [place]'s Name: Demetrius Lobato MD Date/time of reading: Mar 06 2010 - 9:39:38 PM Report created at 9:39:42 PM on Saturday, March 06, 2010 External Provider [facility] ORDERABLES Performing Organization Address City/State/[facility] Co de Phone Number [facility] CLIA# [id number] [address] [facility] [address] documented in this encounter Visit Diagnoses Diagnosis Murmur Undiagnosed cardiac murmurs documented in this encounter Care Teams Servicing Manager Relationship Specialty Start Date End Date Yasmine Zuniga DO [address] [place] [address] [address] [place] [id number] PCP - General Family Practice 03/05/10 documented as of this encounter
--- OUTSIDE RECORDS SUMMARY | 2024-08-06 06:06 | XMS_ITS | Clinical Summary ---
Author Organization [facility] Address [address] [place] [address] Care Team Providers Care Supervisor Drawing Name Role Phone Unknown, Notinfile Primary Care [...] on file Legal Sex Male 6:15 PM PRINT GRAPHIC DESIGNER Gender Identity Not on file Sexual Orientation Not on file Obstetrics History Last Filed Vital Signs Vital Sign Reading Time Taken Comments Blood Pressure 133/79 07/09/2023 11:00 PM PRINT GRAPHIC DESIGNER Pulse 76 07/09/2023 11:00 PM PRINT GRAPHIC DESIGNER Temperature 36.8 ??C (98.2 ??F) 07/09/2023 7:03 PM CS T Respiratory Rate 16 07/09/2023 10:4 0 PM PRINT GRAPHIC DESIGNER Oxygen Saturation 96% 07/09/2023 11: 00 PM PRINT GRAPHIC DESIGNER Inhaled Oxygen Concentration - - Weight 82.5 kg (181 lb 14.1 oz) 07/09/2023 7:03 PM PRINT GRAPHIC DESIGNER Height 182.9 cm (6') 07/09/2023 7:03 PM PRINT GRAPHIC DESIGNER Body Mass Index 24.67 07/09/2023 7:03 PM PRINT GRAPHIC DESIGNER Plan of Treatment Health Maintenance Due Date [...] patient's age to complete [place] [address] Care Teams Supervisor Drawing Relationship Specialty Start Date End Date Unknown, Notinfile PCP - General 07/09/23
--- OUTSIDE RECORDS SUMMARY | 2024-08-06 06:06 | XMS_ITS | Clinical Summary ---
Author Organization [facility] Address [address] [place] [address] Phone Care Team Providers Care Radial Saw Operator Name Role Phone Yasmine Zuniga DO Primary Care Provider [phone] Social History Tobacco Use Types Packs/Day Years [...] age to complete this topic Care Teams Radial Saw Operator Relationship Specialty Start Date End Date Yasmine Zuniga DO [address] [facility] [address] [place] [address] PCP - General Family Practice 03/05/10
--- OUTSIDE RECORDS SUMMARY | 2024-08-06 06:07 | XMS_ITS | Referral Summary ---
Author Organization [facility] Address [address] [place] [address] Care Team Providers Care Confectionery Cooker Name Role Phone Unknown, Notinfile Primary Care [...] on file Legal Sex Male 6:15 PM NURSES AIDE Gender Identity Not on file Sexual Orientation Not on file Last Filed Vital Signs Vital Sign Reading Time Taken Comments Blood Pressure 133/79 07/09/2023 11:00 PM NURSES AIDE Pulse 76 07/09/2023 11:00 PM NURSES AIDE Temperature 36.8 ??C (98.2 ??F) 07/09/2023 7:03 PM CS T Respiratory Rate 16 07/09/2023 10:4 0 PM NURSES AIDE Oxygen Saturation 96% 07/09/2023 11: 00 PM NURSES AIDE Inhaled Oxygen Concentration - - Weight 82.5 kg (181 lb 14.1 oz) 07/09/2023 7:03 PM NURSES AIDE Height 182.9 cm (6') 07/09/2023 7:03 PM NURSES AIDE Body Mass Index 24.67 07/09/2023 7:03 PM NURSES AIDE Plan of Treatment Not on file Insurance [facility] Care Teams Confectionery Cooker Relationship Specialty Start Date End Date Unknown, Notinfile PCP - General 07/09/23
--- OUTSIDE RECORDS SUMMARY | 2024-08-06 06:07 | XMS_ITS | Encounter Summary ---
Author Organization [facility] Address [address] [place] [address] Care Team Providers Care Edge Grinder Name Role Phone Unknown, Notinfile Primary Care Provider Unavail able Reason for Visit * Reason Comments Fall Chest Wall Pain Encounter Details Date Type Department Care Team (Late st Contact Info) Description 07/09/2023 10:36 PM PLUMBING ENGINEERING DRAFTSPERSON - 07/09/2023 11:57 PM PLUMBING ENGINEERING DRAFTSPERSON Emergency [facility] Emergency Department [address] [place] [id number] Trauma of chest, initial encounter (Primary [...] on file Legal Sex Male 6:15 PM PLUMBING ENGINEERING DRAFTSPERSON Gender Identity Not on file Sexual Orientation Not on file documented as of this encounter Last Filed Vital Signs Vital Sign Reading Time Taken Comments Blood Pressure 133/79 07/09/2023 11:00 PM PLUMBING ENGINEERING DRAFTSPERSON Pulse 76 07/09/2023 11:00 PM PLUMBING ENGINEERING DRAFTSPERSON Temperature 36.8 ??C (98.2 ??F) 07/09/2023 7:03 PM CS T Respiratory Rate 16 07/09/2023 10:4 0 PM PLUMBING ENGINEERING DRAFTSPERSON Oxygen Saturation 96% 07/09/2023 11: 00 PM PLUMBING ENGINEERING DRAFTSPERSON Inhaled Oxygen Concentration - - Weight 82.5 kg (181 lb 14.1 oz) 07/09/2023 7:03 PM PLUMBING ENGINEERING DRAFTSPERSON Height 182.9 cm (6') 07/09/2023 7:03 PM PLUMBING ENGINEERING DRAFTSPERSON Body Mass Index 24.67 07/09/2023 7:03 PM PLUMBING ENGINEERING DRAFTSPERSON documented in this encounter Discharge Instructions * Discharge Instructions* Florencia Kimbrough NP - 07/09/2023 11:46 PM PLUMBING ENGINEERING DRAFTSPERSON You are leaving against medical advice, your welcome back any time will very happy to help you. Meantime make sure to follow-up with primary care doctor for further evaluation return to ED as soon aspossible for any worsening of symptoms. BING ENGINEERING DRAFTSPERSON documented in this encounter Discharge Disposition Disposition [...] patient does not meet age criteria for [facility] follow-up. MEDIASTINUM/CASSIDY: Small amount of anterior [...] Jacobo Coronel M.D. AG: AUDRA Report ID: [id number] Reading Location: [id number] XR Ribs Right W PA Chest 3 [...] Jacobo Coronel M.D. AG: AUDRA Report ID: [id number] Reading Location: [id number] ED COURSE/MEDICAL DECISION MAKING ED Course as [...] medications. This examination was transcribed using the [employer] voice recognition system without human product coordinator. In an effort to expedite patient care, this report has not been adjusted for typographical, grammatical, and syntax by a trained medical radiation therapist. Florencia Kimbrough NP 07/09/232356 Cosigned by Batool Vargas MD at 07/10/2023 5:58 AM PLUMBING ENGINEERING DRAFTSPERSON BING ENGINEERING DRAFTSPERSON BING ENGINEERING DRAFTSPERSON * Sabrina Torres, RN - 07/09/2023 6:58 PM CST Patient states that he fell approx 2-3ft from a small ladder and struck his right chest wall. Endorses pain to right ribs. Tylenol taken DISPOSITION CLERK with some relief. BING ENGINEERING DRAFTSPERSON documented in this encounter Plan of Treatment Not on file documented as of this encounter Procedures Procedure Name Priority Date/Time Associated Diagnosis Comments CT CHEST W CONTRAST ED 07/09/2023 9 :10 PM PLUMBING ENGINEERING DRAFTSPERSON POCT CREATININE FOR CONTRAST EVALUATION Routine 07/09/2023 8:23 PM PLUMBING ENGINEERING DRAFTSPERSON EGFR STAT 07/09/2023 8:21 PM PLUMBING ENGINEERING DRAFTSPERSON DIFFERENTIAL AUTO STAT 07/09/2023 8:2 1 PM PLUMBING ENGINEERING DRAFTSPERSON CBC WITH AUTO DIFFERENTIAL STAT 07/09/2023 8:21 PM PLUMBING ENGINEERING DRAFTSPERSON COMPREHENSIVE METABOLIC PANEL STAT 07/09/2023 8:21 PM PLUMBING ENGINEERING DRAFTSPERSON XR RIBS RIGHT W PA CHEST ED 07/09/2023 7:54 PM PLUMBING ENGINEERING DRAFTSPERSON documented in this encounter Results * CT Chest W Contrast (07/09/2023 9:10 PM PLUMBING ENGINEERING DRAFTSPERSON) Anatomical Region Laterality Modality Body N/A Computed Tomogra phy 07/09/2023 9:18 PM PLUMBING ENGINEERING DRAFTSPERSON Addenda Addendum by Jacobo Coronel MD on 08/31/2023 12:11 PM PLUMBING ENGINEERING DRAFTSPERSON ADDENDUM: This addendum report supersedes the original report dated 07/09/2023 MIPS addendum. ??The right-sided rib fractures are 1 part. END OF ADDENDUM REPORT THIS IS AN ELECTRONICALLY VERIFIED FINAL REPORT 08/31/2023 12:11 PM ??Addendum Electronically signed by Jacobo Coronel M.D. AG: AG D: ??08/31/2023 12:11 PM T: ??08/31/2023 12:11 PM Report ID: [id number] Reading Location: ??[id number] Narrative 07/09/2023 9:31 PM PLUMBING ENGINEERING DRAFTSPERSON EXAM DESCRIPTION: CT CHEST W CONTRAST REASON [...] PM T: ??07/09/2023 9:31 PM Report ID: [id number] Reading Location: ??[id number] Procedure Note Jacobo Coronel MD - 07/09/2023 [...] The patient does notmeet age criteria for [facility] follow-up. MEDIASTINUM/CASSIDY: Small amount of anterior [...] Jacobo Coronel M.D. AG: AUDRA Report ID: [id number] Reading Location: [id number] Florencia Kimbrough NP IMG CT PROCEDURES Edited Result - Final * POCT creatinine for contrast evaluation (07/09/2023 8:23 PM PLUMBING ENGINEERING DRAFTSPERSON) Creatinine POC 1.00 0.80 - 1.30 mg/dL [facility]E Comment:Testing performed by : [facility], [address] [place] [address]., [id number] Blood 07/09/2023 8:23 PM PLUMBING ENGINEERING DRAFTSPERSON 07/09/2023 8:23 PM PLUMBING ENGINEERING DRAFTSPERSON us Notinfile Unknown POINT OF CARE TEST ORDERABLES Final Result Performing Organization Address City/State/[facility] Co de Phone Number [facility] [address] [facility] Department [place] [address] * eGFR (07/09/2023 8:21 PM PLUMBING ENGINEERING DRAFTSPERSON) Pathologist [facility] eGFR 106 mL/min/1. 73 m2 HERVE Comment: [...] was last reviewed 2021. Testing performed by: [facility], [address] [place] [address]., [address] Blood 07/09/2023 8:21 PM PLUMBING ENGINEERING DRAFTSPERSON 07/09/2023 8:28 PM PLUMBING ENGINEERING DRAFTSPERSON us Florencia Kimbrough NP LAB BLOOD ORDERABLES Final Resul t [facility] [address] [facility] Department [place] [address] * (ABNORMAL) Differential, auto (07/09/2023 8:21 PM PLUMBING ENGINEERING DRAFTSPERSON) Neutrophil abs 12.0(H) 1.5 - 6.5 K/cumm HERVE Comment:Testing performed by : [address] [address] Imm gran abs 0.1 0.0 - 0.1 K/cumm HERVE Comment:Testing performed by : [address] [address] Lymphocyte abs 1.6 0.8 - 3.3 K/cumm HERVE Comment:Testing performed by : [address] [address] Monocyte abs 0.8 0.2 - 0.8 K/cumm HERVE Comment:Testing performed by : [address] [address] Eosinophil abs 0.0 0.0 - 0.5 K/cumm HERVE Comment:Testing performed by : [address] [address] Basophil abs 0.0 0.0 - 0.1 K/cumm HERVE Comment:Testing performed by : [address] [address] Neutrophil pct 82.7 % HERVE Comment: Interpretive Data Percent cell count reference ranges are not reported, since discordance with absolute values may lead to misinterpretation of CBC data. Current Interpretive Data was last revised on 2017. Testing performed by: [address] [address] Imm gran pct 0.6 % HERVE Comment: Interpretive Data Percent cell count reference ranges are not reported, since discordance with absolute values may lead to misinterpretation of CBC data. Current Interpretive Data was last revised on 2017. Testing performed by: [address] [address] Lymphocyte pct 10.9 % HERVE Comment: Interpretive Data Percent cell count reference ranges are not reported, since discordance with absolute values may lead to misinterpretation of CBC data. Current Interpretive Data was last revised on 2017. Testing performed by: [address] [address] Monocyte pct 5.5 % HERVE Comment: Interpretive Data Percent cell count reference ranges are not reported, since discordance with absolute values may lead to misinterpretation of CBC data. Current Interpretive Data was last revised on 2017. Testing performed by: [address] [address] Eosinophil pct 0.1 % HERVE Comment: Interpretive Data Percent cell count reference ranges are not reported, since discordance with absolute values may lead to misinterpretation of CBC data. Current Interpretive Data was last revised on 2017. Testing performed by: [address] [address] Basophil pct 0.2 % HERVE Comment: Interpretive Data Percent cell count reference ranges are not reported, since discordance with absolute values may lead to misinterpretation of CBC data. Current Interpretive Data was last revised on 2017. Testing performed by: [address] [address] Blood 07/09/2023 8:21 PM PLUMBING ENGINEERING DRAFTSPERSON 07/09/2023 8:28 PM PLUMBING ENGINEERING DRAFTSPERSON us Florencia Kimbrough NP LAB BLOOD ORDERABLES Final Resul t [facility]E AHUJA [address] [facility] Department [place] [address] * (ABNORMAL) CBC with auto differential (07/09/2023 8:21 PM PLUMBING ENGINEERING DRAFTSPERSON) WBC 14.5(H) 3.8 - 9.9 K/cumm [facility]E AHUJA Comment:Testing performed by : [address] [place]., [address] Hgb 14.7 13.0 - 17.5 g/dL HERVE Comment: Interpretive Data A reference range for this assay has not been established for patients with an unknown legal sex. Please refer to the laboratory test catalog for established sex-specific reference intervals. Current interpretive data was last revised on 2023. Testing performed by: [address] [address] Hct 45.4 38.9 - 50.3 % HERVE Comment: Interpretive Data A reference range for this assay has not been established for patients with an unknown legal sex. Please refer to the laboratory test catalog for established sex-specific reference intervals. Current interpretive data was last revised on 2023. Testing performed by: [address] [address] Plt 267 150 - 400 K/cumm HERVE Comment:Testing performed by : [address] [address] MPV 10.2 9.1 - 12.3 fL [facility]E Comment:Testing performed by : [address] [address] RBC 4.82 4.30 - 5.80 M/cumm HERVE Comment: Interpretive Data A reference range for this assay has not been established for patients with an unknown legal sex. Please refer to the laboratory test catalog for established sex-specific reference intervals. Current interpretive data was last revised on 2023. Testing performed by: [address] [address] MCV 94.2 81.3 - 96.4 fL HERVE Comment:Testing performed by : [address] [address] MCH 30.5 27.1 - 33.3 pg HERVE Comment:Testing performed by : [address] [address] MCHC 32.4 32.3 - 35.7 g/dL HERVE Comment:Testing performed by : [address] [address] RDW CV 12.7 11.1 - 14.9 % [facility]E AHUJA Comment:Testing performed by : [address] [address] RDW SD 43.8 35.7 - 48.1 fL [facility] AHUJA Comment:Testing performed by : [address] [address] NRBC abs 0.00 0.00 - 0.01 K/cumm [facility]E AHUJA Comment:Testing performed by : [address] [address] Blood 07/09/2023 8:21 PM PLUMBING ENGINEERING DRAFTSPERSON 07/09/2023 8:28 PM PLUMBING ENGINEERING DRAFTSPERSON us Florencia Kimbrough NP LAB BLOOD ORDERABLES Final Resul t [facility] AHUJA [facility] Department [place] [address] * (ABNORMAL) Comprehensive metabolic panel (07/09/2023 8:21 PM PLUMBING ENGINEERING DRAFTSPERSON) Sodium 141 135 - 145 mmol/L [facility]E AHUJA Comment:Testing performed by : [address] [address] Potassium, pl 4.7 3.3 - 4.9 mmol/L [facility]E AHUJA Comment:Testing performed by : [address] [address] Chloride 102 97 - 110 mmol/L [facility] AHUJA Comment:Testing performed by : [address] [address] CO2 27 22 - 32 mmol/L HERVE Comment:Testing performed by : [address] [address] Anion gap 12 2 - 15 mmol/L [facility] AHUJA Comment:Testing performed by : [address] [address] BUN 20 6 - 25 mg/dL [facility] AHUJA Comment:Testing performed by : [address] [address] Creatinine 1.00 0.80 - 1.30 mg/dL [facility]E AHUJA Comment:Testing performed by : [address] [address] Glucose 96 70 - 199 mg/dL HERVE [...] was last revised 2022. Testing performed by: [address] [address] Calcium 10.3 8.5 - 10.3 mg/dL HERVE Comment:Testing performed by : [address] [address] Bilirubin, total 0.4 0.1 - 1.2 mg/dL [facility]E Comment:Testing performed by : [address] [address] Protein, pl 8.9(H) 6.5 - 8.5 g/dL [facility]E Comment:Testing performed by : [address] [address] Albumin 5.1(H) 3.5 - 5.0 g/dL HERVE Comment:Testing performed by : [address] [address] Alk phos 139(H) 40 - 130 Units/L [facility]E Comment:Testing performed by : [address] [address] ALT 24 7 - 55 Units/L H[facility]E Comment:Testing performed by : [address] [address] AST 29 10 - 50 Units/L [facility]E Comment:Testing performed by : [address] [address] Blood 07/09/2023 8:21 PM PLUMBING ENGINEERING DRAFTSPERSON 07/09/2023 8:28 PM PLUMBING ENGINEERING DRAFTSPERSON us Florencia Kimrbough AUTOCAD DESIGNER LAB BLOOD ORDERABLES Final Resul t [facility] [address] [facility] Department [place] [address] * XR Ribs Right W PA Chest 3 or More Views (07/09/2023 7:54 PM PLUMBING ENGINEERING DRAFTSPERSON) Anatomical Region Laterality Modality Rib, Chest Right Computed Radiogr aphy 07/09/2023 7:56 PM PLUMBING ENGINEERING DRAFTSPERSON Narrative 07/09/2023 7:58 PM PLUMBING ENGINEERING DRAFTSPERSON EXAM DESCRIPTION: XR RIBS RIGHT W PA [...] PM T: ??07/09/2023 7:58 PM Report ID: [id number] Reading Location: ??[id number] Procedure Note Jacobo Coronel MD - 07/09/2023 [...] Jacobo Coronel M.D. AG: AUDRA Report ID: [id number] Reading Location: [place] [address] Florencia Kimbrough NP IMG XR PROCEDURES Final [...] 1 dose Contrast Given 07/09/2023 9:05 PM PLUMBING ENGINEERING DRAFTSPERSON 100 mL Left Antecubital ketorolac (TORADOL) 30 mg/mL (1 mL) injection 15 mg 15 mg, intravenous, Once, On Ruth 07/09/23 at 2038, For 1 dose, For Adult IV push, administer over 15 seconds Given 07/09/2023 8:40 PM PLUMBING ENGINEERING DRAFTSPERSON 15 mg lidocaine (LIDODERM) 5 % patch 1 patch 1 patch, transdermal, Administer over 12 Hours, Daily, First dose on Ruth 07/09/23 at 2038, Do not cover the holes on the top side of the patch., Apply to affected area: back, Indications: painIndications:pain Medication Applied 07/09/2023 8:41 PM PLUMBING ENGINEERING DRAFTSPERSON 1 patch Chest documented in this encounter Active and Recently Administered Medications Times are shown in PLUMBING ENGINEERING DRAFTSPERSON. Scheduled Medication Order 07/07/2023 07/08/2023 07/09/2023 ketorolac [...] dose 2356 (Not Given - Pr ovider: Jnae Hutchinson RN - Reason: Patient/family refused) PRN [...] 07/09/2023 documented in this encounter Care Teams Edge Grinder Relationship Specialty Start Date End Date Unknown, Notinfile PCP - General 07/09/23 documented as of this encounter
== END 2024-07-30 08:43 | disposition left against medical advice (07) ==
LOC: ANHED 07:32
DX: Z53.21 Procedure and treatment not carried out due to patient leaving prior to being seen by health care provider (principal)
CPT/HCPCS: 99199